=== PATIENT | male | born 1940 | race Caucasian/White ===

== ENCOUNTER 2018-05-15 12:23 | Inpatient (IN) | payer OTHER ==
--- OUTSIDE RECORDS SUMMARY | 2018-05-15 12:50 | XMS REPORT | Clinical Summary ---
:1940 Author Organization [facility] Address [address] [place] [address] Phone Care Team Providers Name Role Phone Unavailable Primary Care Provider Unavailable Allergies No Known Allergies Current Medications Prescription Sig. Disp. Refills Start Date End Date Status levothyroxine (SYNTHROID, Take 75 mcg by Active LEVOTHROID) 75 MCG mouth Every morning tabletIndications: on an empty hypothyroidism stomach. lisinopril Take 10 mg by mouth Active (PRINIVIL,ZESTRIL) 10 MG daily. tablet carvedilol (COREG) 6.25 Take 6.25 mg by Active MG tablet mouth 2 (two) times daily with breakfast and dinner. furosemide (LASIX) 40 MG Take 40 mg by mouth Active tablet 2 (two) times daily. lovastatin (MEVACOR) 40 Take 40 mg by mouth Active MG tablet nightly. rivaroxaban (XARELTO) 15 Take by mouth. Active mg Tab tablet docusate sodium (COLACE) Take 100 mg by Active 100 MG capsule mouth daily. Active Problems Problem Noted Date Renal mass 08/20/2016 COPD (chronic obstructive pulmonary disease) (HCC) 08/20/2016 Pleural effusion 08/13/2016 Ex-smoker Social History Tobacco Use Types Packs/Day Years Used Date Never Assessed Sex Assigned at Date Recorded Not on file Last Filed Vital Signs Not on file Plan of Treatment Not on file Results Not on fileafter 05/14/2017
--- OUTSIDE RECORDS SUMMARY | 2018-05-15 12:50 | XMS REPORT ---
:1940 Author [facility] Address [address] [place] [address] Dr. Anaya [address] [place] [address] Care Team Providers Name Role Phone ZEHRA TIMMONS Unavailable Unavailable Problems This patient has no known problems. Allergies, Adverse Reactions, Alerts This patient has no known allergies or adverse reactions. Medications This patient has no known medications. Results Test Description Test Time Test Comments Text Results Atomic Results Result Comments PT/APTT 2017-02-24 10:16:00 Test Item Value Reference Range Comments PROTIME (BEAKER) (test atth=416) 14.1 seconds 11.7-14.7 INR (BEAKER) (test nnfu=063) 1.1 <=5.9 PARTIAL THROMBOPLASTIN TIME (BEAKER) (test fbec=171) 30.0 seconds 22.5-36.0 RECOMMENDED COUMADIN/WARFARIN INR THERAPY RANGESSTANDARD DOSE: 2.0 - 3.0 Includes: PROPHYLAXIS forvenous thrombosis, systemic embolization; TREATMENT for venous thrombosis and/or pulmonary embolus.HIGH RISK: Target INR is 2.5-3.5 for patients with mechanical heart valves.PLATELET [id number] 10:14:00 Test Item Value Reference Range Comments PLATELET COUNT (BEAKER) (test jvlg=089) 314 K/CU MM 150-430
[2018-05-15 13:45] VITALS: BMI 23.3
[2018-05-15] MEDS ORDERED: ALBUTEROL 2.5 MG/3 ML NEB SOL IH PRN (14:02)
[2018-05-15 14:24] LABS: Absolute Lymphocytes (CBC) 1.8 K/uL (0.7-4.9); Absolute Neutrophil 10.3 K/uL (1.8-8.0); Hematocrit 44.7 % (39.6-49.0); Lymphocytes % 13.3 % (15.3-44.8); MCV 82.1 fL (80-100); MPV 8.5 fL (7.6-11.3); Monocytes % 7.4 % (3.3-12.3); RBC Red Blood Cell Count 5.44 M/uL (4.33-5.43)
[2018-05-15 14:39] LABS: Potassium 4.7 mmol/L (3.5-5.1)
[2018-05-15] MEDS: ALBUTEROL 2.5 MG/3 ML NEB SOL IH SCH ×2 (16:45→19:21)
[2018-05-15] MEDS: IPRATROPIUM BROM 0.5MG/2.5ML IH SCH ×2 (16:45→19:22)
[2018-05-15] MEDS: Meropenem 1,000 MG in NA CHLORIDE 0.9% 100 ML IV SCH (17:11)
--- NOTE | 2018-05-15 18:17 | RAD REPORT ---
EXAM DESCRIPTION: VAS - Extremity Venous Uni Ltd - 05/15/2018 6:04 pm CLINICAL HISTORY: CELLULITIS Leg swelling and edema. COMPARISON: No comparisons FINDINGS: Right lower extremity venous system was interrogated with Doppler technique. Normal flow, compressibility and augmentation was noted. There is no DVT present. IMPRESSION: No evidence of right lower extremity deep venous thrombosis.
[2018-05-15 18:30] LABS: Urine Appearance CLEAR; Urine Blood NEGATIVE (NEG); Urine Color DK YELLOW; Urine Glucose NEGATIVE (NEG); Urine Protein NEGATIVE (NEG); Urine Specific Gravity 1.025 (1.005-1.030); Urine pH 5.5 (5.0-7.0)
[2018-05-15 18:47] LABS: Urine Microscopic Reflex NO UMIC
[2018-05-15 18:57] LABS: Urine Bilirubin 1+ (NEG)
[2018-05-15] MEDS ORDERED: LOVASTATIN 40 MG PO SCH (21:00)
[2018-05-15] MEDS: CARVEDILOL 6.25 MG TAB PO SCH (21:57)
[2018-05-15] MEDS: ATORVASTATIN 20 MG TAB PO SCH (21:57)
[2018-05-15] MEDS: HYDROCODONE/APAP 5/325 MG TAB PO PRN (22:00)
[2018-05-16] MEDS: Meropenem 1,000 MG in NA CHLORIDE 0.9% 100 ML IV SCH ×3 (00:08→16:37)
[2018-05-16 06:02] LABS: Albumin 2.1 g/dL (3.4-5.0); Bilirubin Direct 0.2 mg/dL (0-0.2); Bilirubin Total 0.5 mg/dL (0.2-1.0); Potassium 3.5 mmol/L (3.5-5.1); Protein, Total 5.3 g/dL (6.4-8.2)
[2018-05-16] MEDS: LEVOTHYROXINE SOD 0.075 MG TAB PO SCH (06:12)
[2018-05-16] MEDS: IPRATROPIUM BROM 0.5MG/2.5ML IH SCH ×4 (07:51→20:00)
[2018-05-16] MEDS: ALBUTEROL 2.5 MG/3 ML NEB SOL IH SCH ×4 (07:51→20:00)
[2018-05-16] MEDS ORDERED: FUROSEMIDE 20 MG TABLET PO SCH (09:00)
[2018-05-16] MEDS: CARVEDILOL 6.25 MG TAB PO SCH ×2 (09:06→20:51)
[2018-05-16] MEDS: MUPIROCIN 2% OINT 22GM TUBE TOP SCH (09:06)
[2018-05-16] MEDS: DOCUSATE NA 100 MG CAP PO SCH (09:06)
[2018-05-16] MEDS: RIVAROXABAN 15 MG TABLET PO SCH (09:06)
[2018-05-16] MEDS: FUROSEMIDE 20 MG/ 2ML VIAL IV SCH ×2 (09:07→16:37)
[2018-05-16] MEDS: ATORVASTATIN 20 MG TAB PO SCH (20:51)
[2018-05-17] MEDS: Meropenem 1,000 MG in NA CHLORIDE 0.9% 100 ML IV SCH ×3 (00:45→17:39)
[2018-05-17] MEDS: LEVOTHYROXINE SOD 0.075 MG TAB PO SCH (06:39)
[2018-05-17] MEDS: IPRATROPIUM BROM 0.5MG/2.5ML IH SCH ×4 (08:25→20:49)
[2018-05-17] MEDS: ALBUTEROL 2.5 MG/3 ML NEB SOL IH SCH ×4 (08:25→20:49)
[2018-05-17] MEDS: CARVEDILOL 6.25 MG TAB PO SCH ×2 (09:40→21:55)
[2018-05-17] MEDS: MUPIROCIN 2% OINT 22GM TUBE TOP SCH (09:41)
[2018-05-17] MEDS: DOCUSATE NA 100 MG CAP PO SCH (09:41)
[2018-05-17] MEDS: FUROSEMIDE 20 MG/ 2ML VIAL IV SCH ×2 (09:42→17:38)
[2018-05-17] MEDS: RIVAROXABAN 15 MG TABLET PO SCH (09:48)
[2018-05-17 13:09] LABS: Absolute Lymphocytes (CBC) 1.1 K/uL (0.7-4.9); Absolute Monocytes 0.8 K/uL (0.1-1.3); Absolute Neutrophil 6.3 K/uL (1.8-8.0); Basophils % 0.8 % (0-1.3); Hematocrit 43.4 % (39.6-49.0); Lymphocytes % 13.3 % (15.3-44.8); MCH 26.1 pg (27.0-35.0); MCV 83.1 fL (80-100); MPV 8.1 fL (7.6-11.3); Monocytes % 9.2 % (3.3-12.3); RBC Red Blood Cell Count 5.22 M/uL (4.33-5.43)
[2018-05-17 13:21] LABS: Potassium 4.6 mmol/L (3.5-5.1)
--- NOTE | 2018-05-17 17:45 | PN ---
Date of Progress Note: 05/17/2018 The patient's cellulitis has decreased considerably. The erythema has improved. Still has marked in duration in the area; however, is not near as tender and now he can walk on. The wound itself still showed some cellulitic areas circumferentially on the lower outer aspect of the ankle. His creatinin e and potassium remained stable on the 40 mg of IV Lasix; however, he has had decrease in the periphe ral fluid. Decision should be made tomorrow as to whether continue the Merrem IV or change to p.o. m edication. There was no evidence of any clot on Doppler. HR/MODL Voice ID: [id number] Report ID: [id number]
--- NOTE | 2018-05-17 18:42 | HP ---
Date of Admission: 05/15/2018 Entrance Complaint: Painful right leg. History Of Present Illness: The patient states he scratched his right lower leg a couple weeks ago. He did not think much of it, put some topical antibiotic on it and then a few days prior to being se en in the office, he noticed some soreness in the right upper thigh, inner aspect, it then became fir m, red, and he presented to the office, a diagnosis of cellulitis, lymphangitis was made and he was a dmitted for antibiotic IV therapy. Past Medical History: The patient has had significant past history over the past few years, has been admitted in numerous including here and in [place] for episodes of CHF, acute exacerbatio ns of COPD, renal cancer, which necessitated removal of his kidney, various chemotherapies, which res ulted in some decreased immunity and as of late fluid retention. Family History: Noncontributory. Social History: The patient currently is nonsmoker, although he has in the past a number of years. Nonalcoholic. Physical Examination: General: The patient is a rather thin elderly male, utilizing oxygen, nasal cannula, with stable vit al signs. Head and Neck: Normocephalic. Pupils equal and react to light and accommodation. Fundi negative. Trachea midline. Thyroid not palpable. ENT: Negative. Chest: Occasional rales at both bases. Cardiovascular: PMI midclavicular line. Heart: Sounds normal. Peripheral pulses present and equal bilaterally. Abdomen: No organomegaly. Bowel sounds present. Extremities: +2 pitting edema on the right, quarter-size abrasion, slightly purulent-appearing on th e right ankle, tenderness from the knee to the groin, erythema on the inner aspect, indura colt in this area as well and appears to be palpable nodes in the right groin. Rectal: Deferred. Impression: Abrasion on the ankle with secondary lymphangitis and cellulitis of the right upper leg; congestive heart failure, controlled; chronic obstructive pulmonary disease, controlled; post nephre ctomy, kidney cancer. Plan: The patient will be admitted and placed on IV antibiotics. IV diuretics in the form of Lasix will also be utilized in attempt to remove some of the fluid from the lower extremities secondary to combination of CHF and/or borderline protein levels. HR/MODL Voice ID: [id number]
[2018-05-17] MEDS: ATORVASTATIN 20 MG TAB PO SCH (21:55)
[2018-05-18] MEDS: Meropenem 1,000 MG in NA CHLORIDE 0.9% 100 ML IV SCH ×2 (00:42→09:14)
[2018-05-18] MEDS: LEVOTHYROXINE SOD 0.075 MG TAB PO SCH (05:16)
[2018-05-18] MEDS: HYDROCODONE/APAP 5/325 MG TAB PO PRN (05:27)
[2018-05-18] MEDS: ALBUTEROL 2.5 MG/3 ML NEB SOL IH SCH (08:18)
[2018-05-18] MEDS: IPRATROPIUM BROM 0.5MG/2.5ML IH SCH (08:18)
[2018-05-18 08:28] VITALS: BP 110/56; TEMP 97.1
[2018-05-18] MEDS: DOCUSATE NA 100 MG CAP PO SCH (09:12)
[2018-05-18] MEDS: FUROSEMIDE 20 MG/ 2ML VIAL IV SCH (09:13)
[2018-05-18] MEDS: CARVEDILOL 6.25 MG TAB PO SCH (09:13)
[2018-05-18] MEDS: MUPIROCIN 2% OINT 22GM TUBE TOP SCH (09:13)
[2018-05-18] MEDS: RIVAROXABAN 15 MG TABLET PO SCH (09:13)
[2018-05-18 09:50] VITALS: O2SAT 87
== END 2018-05-18 12:08 | disposition home or self-care (01) | DRG 603 ==
LOC: 2ND 12:49
PROVIDERS: ADMIT Family Medicine; ATTEND Family Medicine
DX: L03.115 Cellulitis of right lower limb (principal); S90.511A Abrasion, right ankle, initial encounter; X58.XXXA Exposure to other specified factors, initial encounter; J44.9 Chronic obstructive pulmonary disease, unspecified; Z99.81 Dependence on supplemental oxygen; I50.9 Heart failure, unspecified; Z85.528 Personal history of other malignant neoplasm of kidney; Z90.5 Acquired absence of kidney; Z92.21 Personal history of antineoplastic chemotherapy; Z87.891 Personal history of nicotine dependence
CPT/HCPCS: 36415; 80048; 80076; 81003; 85025; 87070; 87205; 93971; 94640; J1940

== ENCOUNTER 2018-05-31 13:58 | Inpatient (IN) | payer OTHER ==
--- OUTSIDE RECORDS SUMMARY | 2018-05-31 14:11 | XMS REPORT | Clinical Summary ---
:1940 Author Organization [facility] Address [address] [place] [address] Phone Care Team Providers Name Role Phone [...] Not on file Results Not on fileafter 05/30/2017
--- OUTSIDE RECORDS SUMMARY | 2018-05-31 14:11 | XMS REPORT ---
:1940 Author Organization [facility] Address [address] [place] [address] Dr. Anaya [address] [place] [address] Care Team Providers Name Role Phone ZEHRA TIMMONS Unavailable Unavailable Problems This patient has no known problems. Allergies, Adverse Reactions, Alerts This patient has no known allergies or adverse reactions. Medications This patient has no known medications. Results Test Description Test Time Test Comments Text Results Atomic Results Result Comments PT/APTT 2017-02-24 10:16:00 Test Item Value Reference Range Comments PROTIME (BEAKER) (test lfvo=429) 14.1 seconds 11.7-14.7 INR (BEAKER) (test slwc=580) 1.1 <=5.9 PARTIAL THROMBOPLASTIN TIME (BEAKER) (test hxha=503) 30.0 seconds 22.5-36.0 RECOMMENDED COUMADIN/WARFARIN INR THERAPY RANGESSTANDARD DOSE: 2.0 - 3.0 Includes: PROPHYLAXIS forvenous thrombosis, systemic embolization; TREATMENT for venous thrombosis and/or pulmonary embolus.HIGH RISK: Target INR is 2.5-3.5 for patients with mechanical heart valves.PLATELET [id number] 10:14:00 Test Item Value Reference Range Comments PLATELET COUNT (BEAKER) (test tyuk=783) 314 K/CU MM 150-430
[2018-05-31] MEDS ORDERED: IPRATROPIUM BROM 0.5MG/2.5ML IH PRN (14:42)
[2018-05-31] MEDS ORDERED: ALBUTEROL 2.5 MG/3 ML NEB SOL IH PRN (14:42)
[2018-05-31 15:42] VITALS: BMI 23.6
[2018-05-31 16:02] LABS: Urine Appearance CLEAR; Urine Bilirubin NEGATIVE (NEG); Urine Blood NEGATIVE (NEG); Urine Color YELLOW; Urine Glucose NEGATIVE (NEG); Urine Protein NEGATIVE (NEG); Urine Specific Gravity <=1.005 (1.005-1.030)
[2018-05-31 16:03] LABS: Urine Microscopic Reflex NO UMIC
[2018-05-31] MEDS: ALBUTEROL 2.5 MG/3 ML NEB SOL IH SCH ×2 (16:19→20:10)
[2018-05-31] MEDS: IPRATROPIUM BROM 0.5MG/2.5ML IH SCH ×2 (16:19→20:00)
[2018-05-31] MEDS: RIVAROXABAN 15 MG TABLET PO SCH (16:51)
[2018-05-31] MEDS ORDERED: FUROSEMIDE 40 MG/4 ML VIAL IV ONE (17:38)
[2018-05-31 18:23] LABS: Albumin 2.5 g/dL (3.4-5.0); Bilirubin Total 0.3 mg/dL (0.2-1.0); Magnesium 2.5 mg/dL (1.8-2.4); Phosphorus 3.2 mg/dL (2.5-4.9); Potassium 4.4 mmol/L (3.5-5.1); Protein, Total 5.8 g/dL (6.4-8.2)
[2018-05-31] MEDS: ALBUMIN HUMAN 25% 12.5 GM, FUROSEMIDE 100 MG in NA CHLORIDE 0.9% 40 ML IV SCH ×2 (18:35→22:28)
[2018-05-31 21:52] LABS: UR PROTEIN 5 mg/dL (<11.9); Urine Protein/Creatinine Ratio 0.28 ratio (<0.15)
[2018-05-31 22:10] LABS: UR MICROALBUMIN < 0.5 mg/dL (< 1.9)
--- NOTE | 2018-05-31 22:13 | RAD REPORT ---
EXAM DESCRIPTION: RAD - Chest Single View - 05/31/2018 9:10 pm CLINICAL HISTORY: Chronic kidney disease, fluid overload COMPARISON: CT chest November 2017, two view chest November 2017 TECHNIQUE: AP portable chest image was obtained 2057 hours . FINDINGS: Right-sided Port-A-Cath is in place. Interstitial and alveolar opacities are present in adriano th lower lung finley along with chronic bilateral pleural effusions. Trachea is midline. Upper lobe v asculature within normal limits. Cardiac silhouette is enlarged but stable. No pneumothorax. No gross bony abnormality seen. No acute aortic findings suspected. IMPRESSION: Chronic lung base pleural effusions. Left pleural effusion is slightly smaller than seen on November imaging. Chronic interstitial and patchy alveolar opacities in each lower lobe. These could potentially mask a component of edema or infiltrate.
--- NOTE | 2018-05-31 22:13 | RAD REPORT ---
EXAM DESCRIPTION: US - Renal Ultrasound-Complete - 05/31/2018 9:07 pm CLINICAL HISTORY: Chronic kidney disease, right nephrectomy COMPARISON: CT study July 2016 FINDINGS: The right kidney is absent. The left kidney measures 11.6 x 5.8 x 5.7 cm. Renal cortical t hickness and echogenicity are normal. No hydronephrosis or suspicious renal mass. No bladder wall thickening or mass. No intraluminal stone or mass. IMPRESSION: No hydronephrosis or suspicious left renal mass. Right nephrectomy.
[2018-05-31] MEDS: CARVEDILOL 6.25 MG TAB PO SCH (22:28)
--- NOTE | 2018-06-01 03:16 | HP ---
Date of Admission: 05/31/2018 Entrance Complaint: Increasing dyspnea, peripheral edema. History Of Present Illness: The patient has had the above-outlined problems for a number of months n ow. He has been treated with various modalities on an outpatient basis with minimal improvement. He has had approximately 5-pound weight loss. During this time, his albumin and protein have come down somewhat, although they had been borderline in the past. He was also seen by his oncologist a few d ays ago and a CT scan was done of the chest, however, it is not available at this time due to the pro gression of the exertional dyspnea and a poor response of peripheral edema to various outpatient diur etic treatments and was felt that he could be admitted, possibly placed on protein with diuresis to i mprove his general condition. Past History: The patient has a long medical history necessitating hospitalization for numerous prob lems including lung CA, CHF, COPD, and was admitted a couple weeks ago for cellulitis and lymphangiti s of the upper extremity on the right. This has improved considerably. Social History: Nonsmoker at present. Family History: Noncontributory. Physical Examination: General: The patient is a thin elderly male using oxygen nasally. vital Signs: Stable. Head and Neck: Normocephalic. Pupils equal and reactive to light and accommodation. Fundi negative. Trachea midline. Thyroid not palpable. ENT: Negative. Chest: Bilateral rhonchi and few rales at both bases. Adequate air entry and movement. Cardiovascular: PMI midclavicular line. Heart: Sounds normal. Peripheral pulses are present and equal bilaterally. Abdomen: No organomegaly. Bowel sounds are present. Extremities: +2 pitting edema bilaterally below the knees. Upper extremities normal. Good tone and movement bilaterally. Reflexes physiologic. Rectal: Deferred. Impression: Congestive heart failure with peripheral edema, right-sided failure, hypoalbuminemia, ca ncer of lung by history, renal cancer by history. Plan: The patient will be admitted and placed on IV albumin and diuresis in an intend to remove sign ificant amount of fluid. He will be seen by Nephrology. HR/MODL Voice ID: [id number]
[2018-06-01] MEDS: ALBUMIN HUMAN 25% 12.5 GM, FUROSEMIDE 100 MG in NA CHLORIDE 0.9% 40 ML IV SCH ×5 (04:05→23:19)
[2018-06-01] MEDS ORDERED: LEVOTHYROXINE SOD 0.075 MG TAB PO SCH (06:30)
[2018-06-01 06:31] LABS: Magnesium 2.2 mg/dL (1.8-2.4); Phosphorus 3.5 mg/dL (2.5-4.9); Potassium 4.3 mmol/L (3.5-5.1)
[2018-06-01 06:33] LABS: Thyroid Stimulating Hormone 4.81 uIU/mL (0.36-3.74)
[2018-06-01] MEDS: IPRATROPIUM BROM 0.5MG/2.5ML IH SCH ×4 (08:07→20:05)
[2018-06-01] MEDS: ALBUTEROL 2.5 MG/3 ML NEB SOL IH SCH ×4 (08:07→20:04)
[2018-06-01] MEDS: CARVEDILOL 6.25 MG TAB PO SCH ×2 (08:45→21:43)
--- NOTE | 2018-06-01 12:28 | CON ---
Date of Consultation: 05/29/2018 Chief Complaint: Anasarca, legs edema, chronic kidney disease stage 3. History Of Present Illness: The patient has history of chronic kidney disease stage 3, baseline renal function is fluctuating , GFR ranging from 34 to 56. He developed previously prerenal azotemia. He did not require dialysis. The patient was referred by primary physician for worsening of the legs edema. Renal function was evaluated today in the hospital and it showed BUN of 17, creatinine 1.3, estimated GFR of 53. Electrolytes as follows; sodium 141, potassium 4.4, chloride 100, CO2 of 36, phosphorus 3.2, calcium 8.2. The patient developed progressively worse legs edema, and despite diuretics' dose adjustment, legs edema has not improved. The patient is admitted to the hospital for IV diuretics. He has underlying history of hypertensive heart and kidney disease, hypothyroidism. Review of Systems: General: He denies fever or chills. Eyes: Denies vision changes. Ears, Nose, Mouth, and Throat: Denies sore throat or earache. Respiratory: Denies PND or orthopnea. He has chronic history of dyspnea on exertion. GI: Denies nausea or vomiting. : Denies dysuria, hematuria, or incomplete voiding. All other system reviewed and all are negative. Past Medical History: Hypertensive heart and kidney disease; congestive heart failure; COPD exacerbation; renal cancer, status post nephrectomy, status post chemotherapy. Social History: Previously he quit smoking. Denies tobacco or alcohol. Family History: No kidney disease. Physical Examination: Eyes: Anicteric sclerae. EOMI. Ears, Nose, Mouth and Throat: Oral mucosa moist. No pallor. Neck: Supple. No JVD. No bruits. Lungs: Clear to auscultation bilaterally. Heart: S1, S2. No pericardial friction rub Abdomen: Soft, benign. Extremities: Edema present in both legs. No tenderness, no cyanosis. Neurological: Moving extremities. Cranial nerves intact. Psychiatric: Alert and oriented x3. Normal affect. Laboratory Data: Sodium 141, potassium 4.4, chloride 100, CO2 of 36, BUN 17, creatinine 1.30, calcium 8.9, phosphorus 3.2, total bilirubin is 2.5. Hemoglobin is 13.6, WBC 8.3, platelet count is 291,000. Renal ultrasound showed no hydronephrosis, right nephrectomy, no suspicious left renal mass, no bladder thickening, no intraluminal stone or mass. Left kidney size 11.6 x 5.8. Impression And Plan: 1. Fluid overload, legs edema. Continue Lasix with albumin drip. Monitor electrolytes. Plan to advance diuretic according to fluid balance. 2. Hypertension. Blood pressure in acceptable control. Continue beta- aura. The patient has history of congestive heart failure. Currently, he denies PND or orthopnea. Chest x-ray did not demonstrate infiltrate. Monitor fluid balance. Continue low-sodium diet. The patient may need to have lower extremity venous Doppler to rule out deep venous thrombosis. 3. The patient has chronic lung disease, chronic obstructive pulmonary disease. Chest x-ray showed some chronic interstitial and patchy alveolar opacities. Further recommendation from Pulmonary team and Primary team. Continue to reevaluate oxygenation and advance oxygen level accordingly. The patient may need to have CT scan for further workup. Contrast at this point is not recommended in view of elevated BUN and creatinine. 4. Hypertension. Continue blood pressure medications. Monitor blood pressure closely when the patient is on Lasix drip. JOLENE/DERRICK Voice ID: [id number] Report ID: [id number] LAZARA
[2018-06-01] MEDS: RIVAROXABAN 15 MG TABLET PO SCH (17:09)
--- NOTE | 2018-06-02 00:53 | PN ---
Date of Progress Note: 06/01/2018 Subjective: The patient is admitted with over volume anasarca. We started the patient on Lasix drip . The patient is responding very well. Physical Examination: Vital Signs: Blood pressure of 109/57, pulse of 75. The patient had good urine output of 4300. The patient lost 9 pounds from yesterday. Chest: Crackles in the base. Heart: S1, S2. Regular. Abdomen: Soft, nontender. Extremities: +2 edema. Laboratory Data: Sodium 143, potassium 4.3, bicarb 39, BUN 17, creatinine 1.4, calcium 8.8, phosphor us 3.5, magnesium 2.2. TSH 4.8. Protein creatinine 0.2. Medications: Current medications the patient on include; 1.Lasix drip. 2.Albumin. 3.Carvedilol 6.25 b.i.d. 4.Levothyroxine. 5.Lasix 40 daily. Assessment And Plan: 1.Hypertension. We will utilize the blood pressure for more diuresis. I am going to go ahead and d ecrease carvedilol. Continue Lasix drip. 2.Hypothyroidism. Increase supplement. 3.Chronic kidney disease, stable on baseline over volume as above. We will continue diuresing. 4.Anasarca, multifactorial. 5.Renal failure. 6.Hypothyroidism. As above. BRANDO Voice ID: [id number] Report ID: [id number]
[2018-06-02] MEDS: ALBUMIN HUMAN 25% 12.5 GM, FUROSEMIDE 100 MG in NA CHLORIDE 0.9% 40 ML IV SCH ×2 (05:16→10:50)
[2018-06-02] MEDS: LEVOTHYROXINE SOD 0.1 MG TAB PO SCH (05:17)
[2018-06-02 05:54] LABS: Albumin 4.1 g/dL (3.4-5.0); Magnesium 2.5 mg/dL (1.8-2.4); Phosphorus 4.5 mg/dL (2.5-4.9); Potassium 4.2 mmol/L (3.5-5.1)
[2018-06-02] MEDS: IPRATROPIUM BROM 0.5MG/2.5ML IH SCH ×4 (07:39→20:55)
[2018-06-02] MEDS: ALBUTEROL 2.5 MG/3 ML NEB SOL IH SCH ×4 (07:39→20:55)
[2018-06-02] MEDS: CARVEDILOL 6.25 MG TAB PO SCH ×2 (08:48→17:21)
[2018-06-02] MEDS: RIVAROXABAN 15 MG TABLET PO SCH (17:22)
[2018-06-02] MEDS: BUMETANIDE 1 MG TABLET PO SCH (21:22)
--- NOTE | 2018-06-03 02:46 | PN ---
Date of Progress Note: 06/02/2018 Subjective: The patient doing better. The patient lost 18 pounds from admission. Physical Examination: Vital Signs: Blood pressure 98/53, pulse of 89, afebrile. Chest: Clear to auscultation. Heart: S1, S2. Regular. Abdomen: Soft, nontender. Extremities: No edema. Laboratory Data: Sodium 144, potassium 4.2, bicarb 40, BUN 21, creatinine 1.6, calcium 9.7, phosphor us 4.2, protein creatinine 0.2. Current Medications: Include: 1.Lasix drip. 2.Breathing treatment. 3.Carvedilol 3.25. 4.Xarelto. 5.Levothyroxine. Assessment And Plan: 1.Acute kidney injury on chronic kidney disease, plateaued. 2.Anasarca, secondary to renal failure. Poor compliant with the salt diet, currently normal volume. I am going to switch the patient to oral Bumex and will follow up. 3.Hypertension, controlled, currently blood pressure on the lower side. Discontinue Lasix drip, sta rt on Bumex oral and will follow up. BRANDO Voice ID: [id number] Report ID: [id number]
[2018-06-03] MEDS: LEVOTHYROXINE SOD 0.1 MG TAB PO SCH (05:18)
[2018-06-03 05:48] LABS: Albumin 3.5 g/dL (3.4-5.0); Magnesium 2.2 mg/dL (1.8-2.4); Potassium 3.3 mmol/L (3.5-5.1)
[2018-06-03] MEDS: IPRATROPIUM BROM 0.5MG/2.5ML IH SCH ×3 (08:00→15:18)
[2018-06-03] MEDS: ALBUTEROL 2.5 MG/3 ML NEB SOL IH SCH ×3 (08:00→15:18)
[2018-06-03] MEDS: CARVEDILOL 6.25 MG TAB PO SCH (08:41)
[2018-06-03] MEDS: BUMETANIDE 1 MG TABLET PO SCH (08:41)
[2018-06-03] MEDS ORDERED: POTASSIUM CL SA 10 MEQ TAB PO ONE (10:44)
[2018-06-03 10:47] VITALS: O2SAT 91
[2018-06-03 12:04] VITALS: BP 115/69; TEMP 97.6
--- NOTE | 2018-06-03 16:26 | PN ---
Date of Progress Note: 06/03/2018 Subjective: The patient doing much better. The patient was admitted with anasarca, acute kidney inj ury. The patient diuresed on Lasix drip, switched yesterday on Bumex oral. Responds very well. Objective: Vital Signs: Blood pressure 105/60, pulse of 56 afebrile. The patient had urine output of 5900. The patient down to 135 pounds, lost 20 pounds since admission. Chest: Clear to auscultation. Heart: S1, S2. Regular. Abdomen: Soft. Nontender. Extremities: No edema. Laboratory Data: Sodium 140, potassium 3.3, bicarb 40, BUN 23, creatinine 1.3, calcium 8.8, phos 4, and magnesium of 2. Current Medications: The patient is on includes; 1.Bumex 2 mg b.i.d. 2.Albuterol. 3.Coreg 3.125 b.i.d. 4.Xarelto 15 daily. 5.Breathing treatment. 6.Levothyroxine 100 mcg daily. Assessment And Plan: 1.Acute kidney injury secondary to cardiorenal, recovered, resolved, back to base line. 2.Anasarca, multifactorial, cardio renal. Nephrotic has been ruled out. 3.Mild, subtreated hypothyroidism, tolerated Bumex. Continue to lose weight. I am going to continu e Bumex 2 mg b.i.d. 4.Hypokalemia. Continue. We will supplement. The patient cleared from the renal standpoint for discharge planning to follow up in the office in 2- 3 weeks. BRANDO Voice ID: [id number] Report ID: [id number]
--- NOTE | 2018-06-03 17:09 | PN ---
Date of Progress Note: 06/02/2018 Subjective: The patient feels much better. He said he can breathe without significant problems. Th e peripheral edema is markedly improved. He has lost around 18 pounds. He is being converted to p.o . medication and he he tolerates this without significant weight gain, he could be discharged. The a lbumin level is also back up to 4.1. He is being followed by nephrology. HR/MODL Voice ID: [id number] Report ID: [id number]
--- NOTE | 2018-06-03 19:39 | PN ---
Date of Progress Note: 06/03/2018 Subjective: The patient has lost another 2 pounds. He has been on the Bumex. He feels much better, states the best he has felt in over a year. He has no peripheral edema. He will be discharged on B umex 2 mg and follow up with myself and the nephrology. HR/MODL Voice ID: [id number] Report ID: [id number]
--- NOTE | 2018-06-04 10:56 | PN ---
The patient feels much better. He has had a marked amount of diuresis. Peripheral edema is down to +1 to half and possibly should be ready for discharge within 24 hours. The question will be him much diuresis he will require. Response to the diuresis with a protein has been excellent. HR/MODL Voice ID: [id number] Report ID: [id number]
== END 2018-06-03 15:40 | disposition home or self-care (01) | DRG 683 ==
LOC: 4TH 14:08 → OBSVTOIN 06-02 14:00
PROVIDERS: ADMIT Family Medicine; ATTEND Family Medicine
DX: N17.9 Acute kidney failure, unspecified (principal); I13.0 Hypertensive heart and chronic kidney disease with heart failure and stage 1 through stage 4 chronic kidney disease, or unspecified chronic kidney disease; N18.3 Chronic kidney disease, stage 3 (moderate); E87.6 Hypokalemia; J44.9 Chronic obstructive pulmonary disease, unspecified; I50.814 Right heart failure due to left heart failure; E88.09 Other disorders of plasma-protein metabolism, not elsewhere classified; E03.9 Hypothyroidism, unspecified; Z91.11 Patient's noncompliance with dietary regimen; Z90.5 Acquired absence of kidney; Z85.528 Personal history of other malignant neoplasm of kidney; Z85.118 Personal history of other malignant neoplasm of bronchus and lung; Z99.81 Dependence on supplemental oxygen
CPT/HCPCS: 36415; 71045; 76770; 80053; 80069; 81003; 82043; 82570; 83735; 84100; 84156; 84439; 84443; 87070; 87205; 94640; G0378; G0379; P9047

== ENCOUNTER 2018-10-28 16:02 | Inpatient (IN) | payer OTHER ==
--- OUTSIDE RECORDS SUMMARY | 2018-10-28 16:05 | XMS REPORT ---
:1940 [facility] Address [address] [place] [address] Dr. Anaya [address] [place] [address] Care Team Providers Name Role Phone ZEHRA TIMMONS Unavailable Unavailable Problems This patient has no known problems. Allergies, Adverse Reactions, Alerts This patient has no known allergies or adverse reactions. Medications This patient has no known medications. Results Test Description Test Time Test Comments Text Results Atomic Results Result Comments PT/APTT 2017-02-24 10:16:00 Test Item Value Reference Range Comments PROTIME (BEAKER) (test cvui=515) 14.1 seconds 11.7-14.7 INR (BEAKER) (test airq=794) 1.1 <=5.9 PARTIAL THROMBOPLASTIN TIME (BEAKER) (test nqzg=784) 30.0 seconds 22.5-36.0 RECOMMENDED COUMADIN/WARFARIN INR THERAPY RANGESSTANDARD DOSE: 2.0 - 3.0 Includes: PROPHYLAXIS forvenous thrombosis, systemic embolization; TREATMENT for venous thrombosis and/or pulmonary embolus.HIGH RISK: Target INR is 2.5-3.5 for patients with mechanical heart valves.PLATELET [id number] 10:14:00 Test Item Value Reference Range Comments PLATELET COUNT (BEAKER) (test jwzr=504) 314 K/CU MM 150-430
--- OUTSIDE RECORDS SUMMARY | 2018-10-28 16:05 | XMS REPORT | Clinical Summary ---
:1940 Author Organization [facility] Address [address] [place] [address] Care Team Providers Name Role Phone Nikolay Arnold Primary Care Provider Unavailable Allergies No Known Allergies Medications Medication Sig Dispensed Refills Start Date End Date Status levothyroxine Take 75 mcg by 0 Active (SYNTHROID, LEVOTHROID) mouth Every 75 MCG morning on an tabletIndications: empty stomach. hypothyroidism lisinopril Take 10 mg by 0 Active (PRINIVIL,ZESTRIL) 10 mouth daily. MG tablet carvedilol (COREG) 6.25 Take 6.25 mg by 0 Active MG tablet mouth 2 (two) times daily with breakfast and dinner. furosemide (LASIX) 40 Take 40 mg by 0 Active MG tablet mouth 2 (two) times daily. lovastatin (MEVACOR) 40 Take 40 mg by 0 Active MG tablet mouth nightly. rivaroxaban (XARELTO) Take by mouth. 0 Active 15 mg Tab tablet docusate sodium Take 100 mg by 0 Active (COLACE) 100 MG capsule mouth daily. Active Problems Problem Noted Date Renal mass 08/20/2016 COPD (chronic obstructive pulmonary disease) 08/20/2016 Pleural effusion 08/13/2016 Ex-smoker Social History Tobacco Use Types Packs/Day Years Used Date Never Assessed Sex Assigned at Date Recorded Not on file Job Start Date Occupation Industry Not on file Not on file Not on file Travel History Travel Start Travel End No recent travel history available. Last Filed Vital Signs Not on file Plan of Treatment Not on file Results Not on fileafter 10/27/2017 Insurance Payer Benefit Plan / Subscriber ID Type Phone Address Group [employer] - [employer] MEDICARE xxxxxxxx [facility] Contracted [phone] MEDICARE [employer] HMO POS [id number] [place] [address] Advance Directives For more information, please contact:[address] [phone] Code Status Date Activated Date Inactivated Comments Full Code 08/23/2016 11:09 AM 08/25/2016 6:09 PM This code status was determined by: Patient DNR 08/13/2016 1:33 AM 08/23/2016 11:09 AM
[2018-10-28] MEDS ORDERED: IPRATROPIUM BROM 0.5MG/2.5ML ONE (16:17)
[2018-10-28] MEDS ORDERED: ALBUTEROL 2.5 MG/3 ML NEB SOL ONE (16:17)
[2018-10-28] MEDS ORDERED: METHYLPREDNISOLONE 125 MG INJ ONE (16:17)
[2018-10-28 16:21] LABS: Arterial Blood Carboxyhemoglob 1.3 % (0-1.5); Blood Gas Oxyhemoglobin 89.1 % (94-97); Blood O2 Saturation 90.9 % (92-98.5)
[2018-10-28 16:49] LABS: Protime INR 1.15
[2018-10-28 17:00] LABS: Absolute Lymphocytes (CBC) 1.2 K/uL (0.7-4.9); Basophils % 0.8 % (0-1.3); Hematocrit 41.4 % (39.6-49.0); Lymphocytes % 14.7 % (15.3-44.8); MPV 8.6 fL (7.6-11.3); Monocytes % 12.4 % (3.3-12.3); RBC Red Blood Cell Count 4.72 M/uL (4.33-5.43)
[2018-10-28 17:01] LABS: ALT/SGPT 9 U/L (12-78); AST/SGOT 19 U/L (15-37); Albumin 2.5 g/dL (3.4-5.0); Alkaline Phosphatase 55 U/L (45-117); BUN Blood Urea Nitrogen 33 mg/dL (7-18); Bilirubin Direct 0.1 mg/dL (0-0.2); Bilirubin Total 0.2 mg/dL (0.2-1.0); Creatine Phosphokinase 59 U/L (39-308); Glucose Level 87 mg/dL (74-106); Lipase 189 U/L (73-393); Magnesium 2.8 mg/dL (1.8-2.4); NT PRO-BNP 5465 pg/mL (<450); Potassium 4.1 mmol/L (3.5-5.1); Protein, Total 6.6 g/dL (6.4-8.2); Sodium Level 137 mmol/L (136-145); Troponin (Emerg Dept Use Only) < 0.02 ng/mL (0.0-0.045)
[2018-10-28 17:05] LABS: Bicarbonate 43 mmol/L (21-32)
[2018-10-28] MEDS ORDERED: PIPER/TAZO/NS 3.375gm 3.375 GM/100 ML BAG ONE (17:13)
--- NOTE | 2018-10-28 17:13 | EDPHYS ---
Physician Documentation [facility] Name: Abner Thomas Age: 78 yrs Sex: Male : 1940 Arrival Date: 10/28/2018 Time: 16:06 Bed 4 Private MD: ED Physician Maco Mccord HPI: 10/28 16:20 This 78 yrs old Male presents to ER via EMS with complaints of Breathing cp Difficulty. 16:20 The patient has shortness of breath at rest. Onset: The symptoms/episode began/occurred cp gradually, and became worse today. Duration: The symptoms are continuous, and are steadily getting worse. Associated signs and symptoms: Pertinent negatives: chest pain, diaphoresis, fever, hemoptysis, vomiting. Severity of symptoms: in the emergency department the symptoms are unchanged despite home interventions. The patient has experienced similar episodes in the past, multiple times. Historical: - Allergies: 16:20 No Known Allergies; la1 - PMHx: 16:20 cancer of right kidney, mass and kidney removed.; Hyperlipidemia; Hypertension; COPD; la1 - Immunization history:: Adult Immunizations up to date. - Social history:: Smoking status: unknown. - Ebola Screening: : No symptoms or risks identified at this time. ROS: 16:25 Constitutional: Negative for body aches, chills, fever, poor PO intake. cp 16:25 Eyes: Negative for injury, pain, redness, and discharge. cp 16:25 ENT: Negative for drainage from ear(s), ear pain, sore throat, difficulty swallowing, difficulty handling secretions. 16:25 Cardiovascular: Negative for chest pain, edema. 16:25 Respiratory: Positive for shortness of breath, at rest. 16:25 Abdomen/GI: Negative for abdominal pain, nausea, vomiting, and diarrhea, constipation, anorexia, black/tarry stool, rectal bleeding. 16:25 Back: Negative for pain at rest, pain with movement, radiated pain. 16:25 : Negative for urinary symptoms. 16:25 Skin: Negative for cellulitis, rash. 16:25 Neuro: Negative for altered mental status, headache, syncope, near syncope. 16:25 All other systems are negative. Exam: 16:30 Head/Face: Normocephalic, atraumatic. cp 16:30 Constitutional: The patient appears alert, awake, non-diaphoretic, well developed, frail, in obvious distress, moderately distressed. 16:30 Eyes: Periorbital structures: appear normal, Pupils: equal, round, and reactive to light and accomodation, Extraocular movements: intact throughout, Conjunctiva: normal, no exudate, no injection, Sclera: no appreciated abnormality, Lids and lashes: appear normal, bilaterally. 16:30 ENT: External ear(s): are unremarkable, Ear canal(s): are normal, clear, TM's: bulging, is not appreciated, bilaterally, dullness, bilaterally, erythema, is not appreciated, bilaterally, Nose: is normal, Mouth: Lips: moist, Oral mucosa: moist, Posterior pharynx: Airway: no evidence of obstruction, patent, Tonsils: are normal in appearance, Uvula: midline, swelling, is not appreciated, erythema, is not appreciated, exudate, is not appreciated. 16:30 Neck: ROM/movement: is normal, is supple, without pain, no range of motions limitations, no meningismus, no nuchal rigidity, Lymph nodes: no appreciated lymphadenopathy. 16:30 Chest/axilla: Inspection: normal, Palpation: is normal, no crepitus, no tenderness. 16:30 Cardiovascular: Rate: normal, Rhythm: irregularly irregular, Edema: is not appreciated, JVD: is not appreciated. 16:30 Respiratory: moderate respiratory distress is noted, Respirations: labored breathing, that is moderate, shallow respirations, that is moderate, Breath sounds: decreased breath sounds, that are severe, throughout, stridor, is not appreciated. 16:30 Abdomen/GI: Inspection: abdomen appears normal, Bowel sounds: active, all quadrants, Palpation: abdomen is soft and non-tender, in all quadrants, rebound tenderness, is not appreciated, voluntary guarding, is not appreciated, involuntary guarding, is not appreciated. 16:30 Back: pain, is absent, ROM is normal. 16:30 Skin: cellulitis, is not appreciated, no rash present. 16:30 Neuro: Orientation: to person, place \T\ time. Mentation: is normal, Cerebellar function: is grossly normal, Motor: moves all fours, strength is normal, Sensation: is normal. 16:43 ECG was reviewed by the Attending Physician. cp Vital Signs: 16:20 Pulse 76; Resp 22; Temp 98.2; Pulse Ox 72% on R/A; la1 16:20 Pulse Ox 95% on 50% BiPAP; la1 16:23 BP 109 / 67; la1 16:55 BP 117 / 54; Pulse 100; Resp 20; Pulse Ox 96% on 50% BiPAP; la1 18:24 BP 115 / 74; Pulse 95; Resp 18; Pulse Ox 94% on 50% BiPAP; la1 MDM: 16:26 Patient medically screened. cp 17:10 Data reviewed: vital signs, nurses notes, lab test result(s), EKG, radiologic studies, cp plain films. 17:10 Test interpretation: by ED physician or midlevel provider: ECG, plain radiologic cp studies. 10/28 16:14 Order name: Basic Metabolic Panel 10/28 16:14 Order name: CBC with Diff gs 10/28 16:14 Order name: LFT's 10/28 16:14 Order name: Magnesium gs 10/28 16:14 Order name: NT PRO-BNP 10/28 16:14 Order name: PT-INR 10/28 16:14 Order name: Troponin (emerg Dept Use Only) 10/28 16:14 Order name: Blood Culture* 10/28 16:16 Order name: ABG cp 10/28 16:16 Order name: Blood Culture Adult (2) cp 10/28 16:16 Order name: BMP cp 10/28 16:16 Order name: CBC with Diff cp 10/28 16:16 Order name: CPK cp 10/28 16:16 Order name: Hepatic Function cp 10/28 16:16 Order name: Lipase cp 10/28 16:16 Order name: Magnesium cp 10/28 16:16 Order name: NT PRO-BNP cp 10/28 16:16 Order name: PT-INR cp 10/28 16:16 Order name: Ptt, Activated cp 10/28 16:16 Order name: Troponin (emerg Dept Use Only) cp 10/28 16:16 Order name: Influenza Screen (a \T\ B) cp 10/28 16:16 Order name: Procalcitonin cp 10/28 16:16 Order name: Lactate cp 10/28 16:30 Order name: ABG Arterial Blood Gas; Complete Time: 17:07 EDMS 10/28 16:56 Order name: Protime (+INR); Complete Time: 17:07 EDMS 10/28 16:56 Order name: PTT, Activated Partial Thromb; Complete Time: 17:07 EDMS 10/28 16:58 Order name: Lactate; Complete Time: 17:07 EDMS 10/28 17:02 Order name: CBC with Automated Diff; Complete Time: 17:07 EDMS 10/28 17:07 Interpretation: Normal except: HGB 13.5; MCV 87.6; RDW 15.4; LYM% 14.7; MN% 12.4. 10/28 17:05 Order name: Basic Metabolic Panel; Complete Time: 17:07 EDMS 10/28 17:05 Order name: Liver (Hepatic) Function; Complete Time: 17:07 EDMS 10/28 16:14 Order name: XRAY Chest (1 view) 10/28 16:14 Order name: EKG; Complete Time: 16:15 10/28 16:14 Order name: Cardiac monitoring; Complete Time: 16:25 10/28 16:14 Order name: EKG - Nurse/Tech; Complete Time: 16:25 10/28 16:14 Order name: IV Saline Lock; Complete Time: 16:25 10/28 16:14 Order name: Labs collected and sent; Complete Time: 16:25 10/28 16:14 Order name: O2 Per Protocol; Complete Time: 16:25 10/28 16:14 Order name: O2 Sat Monitoring; Complete Time: 16:25 10/28 16:14 Order name: BIPAP 10/28 16:16 Order name: BIPAP 10/28 16:16 Order name: XRAY CXR (1 view) 10/28 16:16 Order name: EKG; Complete Time: 16:17 10/28 16:16 Order name: Cardiac monitoring; Complete Time: 16:43 10/28 16:16 Order name: EKG - Nurse/Tech; Complete Time: 16:43 10/28 16:16 Order name: IV Saline Lock; Complete Time: 16:26 10/28 16:16 Order name: Labs collected and sent; Complete Time: 16:26 10/28 16:16 Order name: O2 Per Protocol; Complete Time: 16:26 10/28 17:05 Order name: Creatine Phosphokinase; Complete Time: 17:07 EDMS 10/28 17:05 Order name: Troponin (Emerg Dept Use Only); Complete Time: 17:07 EDMS 10/28 17:05 Order name: NT PRO-BNP; Complete Time: 17:07 EDMS 10/28 17:05 Order name: Magnesium; Complete Time: 17:07 EDMS 16 17:05 Order name: Lipase; Complete Time: 17:07 EDMS 10/28 17:06 Order name: Influenza Screen (A ; Complete Time: 17:07 EDMS 10/28 17:21 Order name: Procalcitonin; Complete Time: 15:47 EDMS 10/28 17:31 Order name: Blood Culture EDMS 10/28 17:57 Order name: RAD; Complete Time: 15:47 EDMS 10/29 15:48 Interpretation: Report reviewed. cp 10/28 16:16 Order name: O2 Sat Monitoring; Complete Time: 16:26 cp EC:43 Rate is 99 beats/min. Rhythm is irregularly irregular. QRS interval is prolonged at 120 cp msec. QT interval is normal. Interpreted by me. Reviewed by me. Administered Medications: 16:23 Drug: Albuterol - atroVENT (3:1) (2.5 mg - 0.5 mg) 3 ml Route: Nebulizer; la1 16:44 Follow up: Response: Marked relief of symptoms la1 16:24 Not Given (Duplicate Order): Albuterol - atroVENT (3:1) (2.5 mg - 0.5 mg) 3 ml la1 Nebulizer once 16:24 Not Given (Duplicate Order): AtroVENT Aerosol 0.5 mg Inhalation once la1 16:26 Drug: SOLU-Medrol 125 mg Route: IVP; Site: left forearm; la1 16:44 Follow up: Response: No adverse reaction la1 17:16 Drug: Zosyn 3.375 grams Route: IVPB; Infused Over: 60 mins; Site: left antecubital; la1 17:45 Follow up: IV Status: Completed infusion la1 17:45 Drug: LevaQUIN 750 mg Volume: 150 ml; Route: IVPB; Infused Over: 90 mins; Site: left la1 wrist; 17:46 Follow up: IV Status: Infusion continued upon admission la1 Disposition: 18:51 Co-signature as Attending Physician, Maco Mccord MD. Disposition: 10/28/18 17:12 Hospitalization ordered by Michele hWeat for Inpatient Admission. Preliminary diagnosis are Acute respiratory failure, unspecified whether with hypoxia or hypercapnia, Chronic atrial fibrillation. - Bed requested for Telemetry/MedSurg (Inpatient). - Status is Inpatient Admission. la1 - Condition is Stable. - Problem is new. - Symptoms have improved. UTI on Admission? No Signatures: Dispatcher [employer] EDMS Mohit Dotson RN RN la1 Clifford Keene PA PA cp Starr, Gregory, MD MD Zaria Castillo Corrections: (The following items were deleted from the chart) 17:12 17:12 Hospitalization Ordered by Michele Wheat MD for Inpatient Admission. Preliminary cp diagnosis is Acute respiratory failure, unspecified whether with hypoxia or hypercapnia. Bed requested for Telemetry/MedSurg (Inpatient). Status is Inpatient Admission. Condition is Stable. Problem is new. Symptoms have improved. UTI on Admission? No. cp 17:30 17:12 10/28/2018 17:12 Hospitalization Ordered by Michele Wheat MD for Inpatient eb Admission. Preliminary diagnosis is Acute respiratory failure, unspecified whether with hypoxia or hypercapnia; Chronic atrial fibrillation. Bed requested for Telemetry/MedSurg (Inpatient). Status is Inpatient Admission. Condition is Stable. Problem is new. Symptoms have improved. UTI on Admission? No. cp 18:25 17:30 10/28/2018 17:12 Hospitalization Ordered by Michele Wheat MD for Inpatient la1 Admission. Preliminary diagnosis is Acute respiratory failure, unspecified whether with hypoxia or hypercapnia; Chronic atrial fibrillation. Bed requested for Telemetry/MedSurg (Inpatient). Status is Inpatient Admission. Condition is Stable. Problem is new. Symptoms have improved. UTI on Admission? No. eb
--- NOTE | 2018-10-28 17:13 | ER ---
Nurse's Notes [facility] Name: Abner Thomas Age: 78 yrs Sex: Male : 1940 Arrival Date: 10/28/2018 Time: 16:06 Bed 4 Private MD: Diagnosis: Acute respiratory failure, unspecified whether with hypoxia or hypercapnia;Chronic atrial fibrillation Presentation: 10/28 16:17 Presenting complaint: EMS states: Increasing SOB over the last couple days, hx of la1 COPD/CHF, Room air sat 72%. Transition of care: patient was not received from another setting of care. Onset of symptoms was October 28, 2018. Risk Assessment: Do you want to hurt yourself or someone else? Patient reports no desire to harm self or others. Initial Sepsis Screen: Does the patient meet any 2 criteria? No. Patient's initial sepsis screen is negative. Does the patient have a suspected source of infection? No. Patient's initial sepsis screen is negative. Care prior to arrival: None. 16:17 Method Of Arrival: EMS: [facility] la1 16:17 Acuity: MALATHI 2 la1 Historical: - Allergies: 16:20 No Known Allergies; la1 - PMHx: 16:20 cancer of right kidney, mass and kidney removed.; Hyperlipidemia; Hypertension; COPD; la1 - Immunization history:: Adult Immunizations up to date. - Social history:: Smoking status: unknown. - Ebola Screening: : No symptoms or risks identified at this time. Screenin:28 Abuse screen: Denies threats or abuse. Nutritional screening: No deficits noted. la1 Tuberculosis screening: No symptoms or risk factors identified. Fall Risk None identified. Assessment: 16:27 General: Appears comfortable, Behavior is calm, cooperative. Pain: Denies pain. Neuro: la1 Level of Consciousness is awake, alert, obeys commands, Oriented to person, place, time, situation. Cardiovascular: Heart tones S1 S2 present Capillary refill < 3 seconds Patient's skin is warm and dry. Rhythm is sinus rhythm. Respiratory: Airway is patent Trachea midline Respiratory effort is even, labored, Respiratory pattern is tachypnea Breath sounds are coarse Breath sounds are diminished bilaterally. the patient has severe shortness of breath. GI: No signs and/or symptoms were reported involving the gastrointestinal system. : No signs and/or symptoms were reported regarding the genitourinary system. 17:46 Reassessment: Patient appears in no apparent distress at this time. No changes from la1 previously documented assessment. Patient and/or family updated on plan of care and expected duration. Pain level reassessed. Vital Signs: 16:20 Pulse 76; Resp 22; Temp 98.2; Pulse Ox 72% on R/A; la1 16:20 Pulse Ox 95% on 50% BiPAP; la1 16:23 BP 109 / 67; la1 16:55 BP 117 / 54; Pulse 100; Resp 20; Pulse Ox 96% on 50% BiPAP; la1 18:24 BP 115 / 74; Pulse 95; Resp 18; Pulse Ox 94% on 50% BiPAP; la1 ED Course: 16:06 Patient arrived in ED. iw 16:13 Maco Mccord MD is Attending Physician. gs 16:14 Clifford Keene PA is PHCP. cp 16:14 Mohit Dotson, RN is Primary Nurse. la1 16:18 Triage completed. la1 16:20 Initial lab(s) drawn, by me, sent to lab. First set of blood cultures drawn by me, Flu dh3 and/or RSV swab sent to lab. Inserted saline lock: 22 gauge in left forearm, using aseptic technique. Blood collected. 16:23 Arm band placed on right wrist. la1 16:28 Bed in low position. Call light in reach. Side rails up X 1. school bus monitor on. Pulse la1 ox on. NIBP on. 16:43 Second set of blood cultures drawn by me, by venipuncture 23G to right forearm. dh3 16:50 X-ray completed. Portable x-ray completed in exam room. Patient tolerated procedure la2 well. 17:09 Michele Wheat MD is Hospitalizing Provider. cp 18:24 No provider procedures requiring assistance completed. Patient admitted, IV remains in la1 place. Administered Medications: 16:23 Drug: Albuterol - atroVENT (3:1) (2.5 mg - 0.5 mg) 3 ml Route: Nebulizer; la1 16:44 Follow up: Response: Marked relief of symptoms la1 16:24 Not Given (Duplicate Order): Albuterol - atroVENT (3:1) (2.5 mg - 0.5 mg) 3 ml la1 Nebulizer once 16:24 Not Given (Duplicate Order): AtroVENT Aerosol 0.5 mg Inhalation once la1 16:26 Drug: SOLU-Medrol 125 mg Route: IVP; Site: left forearm; la1 16:44 Follow up: Response: No adverse reaction la1 17:16 Drug: Zosyn 3.375 grams Route: IVPB; Infused Over: 60 mins; Site: left antecubital; la1 17:45 Follow up: IV Status: Completed infusion la1 17:45 Drug: LevaQUIN 750 mg Volume: 150 ml; Route: IVPB; Infused Over: 90 mins; Site: left la1 wrist; 17:46 Follow up: IV Status: Infusion continued upon admission la1 Outcome: 17:12 Decision to Hospitalize by Provider. cp 18:24 Admitted to Med/surg accompanied by tech, via wheelchair, room 217. la1 18:24 Condition: stable 18:24 Instructed on the need for admit. 18:25 Patient left the ED. la1 Signatures: Aracely Abreu RN RN Mohit Dotson RN RN la1 Clifford Keene PA PA cp Herrera, Deanna [facility] Maco Mccord MD MD gs Ardoin Jaja la2
[2018-10-28] MEDS ORDERED: Levofloxacin 750mg IV 750 MG/150 ML BAG IV ONE (17:39)
--- NOTE | 2018-10-28 17:57 | RAD REPORT ---
EXAM DESCRIPTION: RAD - Chest Single View - 10/28/2018 4:52 pm CLINICAL HISTORY: Increasing shortness of breath, history of CHF, history of COPD, decreased O2 satu ration COMPARISON: October 19 TECHNIQUE: AP portable chest image was obtained 1648 hours . FINDINGS: Bilateral pleural effusions are present similar on the right and slightly enlarged on the left. Interstitial and alveolar opacities are present. This is more pronounced in the lateral mid lef t lung field. Cardiomediastinal silhouette remains enlarged. Trachea is midline. No pneumothorax. Por t-A-Cath in place on the right. No acute bony abnormality seen. No acute aortic findings suspected. IMPRESSION: Bilateral pleural effusions with interstitial and alveolar opacification present. Stable cardiomegaly. Lung markings are focally more pronounced in the lateral mid chest. Findings favor CHF/volume overload. Lateral left mid lung field superimposed pneumonia is not exclude d but felt to be lesser in likelihood.
[2018-10-28] MEDS ORDERED: ONDANSETRON 4 MG/2 ML VIAL IV PRN (19:19)
[2018-10-28] MEDS ORDERED: ACETAMINOPHEN 500 MG TAB PO PRN (19:19)
[2018-10-28] MEDS ORDERED: IPRATROPIUM BROM 0.5MG/2.5ML NEB PRN (19:19)
[2018-10-28] MEDS ORDERED: ALBUTEROL 2.5 MG/3 ML NEB SOL NEB PRN (19:19)
[2018-10-28] MEDS ORDERED: FUROSEMIDE 20 MG/ 2ML VIAL IV ONE (19:19)
[2018-10-28 21:24] LABS: Arterial Blood Carboxyhemoglob 1.5 % (0-1.5); Blood Gas Oxyhemoglobin 91.5 % (94-97); Blood O2 Saturation 93.3 % (92-98.5)
[2018-10-28 22:25] VITALS: BMI 22.1
[2018-10-29] MEDS: METHYLPREDNISOLONE 40 MG INJ IV SCH ×3 (00:38→17:00)
--- NOTE | 2018-10-29 00:40 | HP ---
Date of Admission: 10/28/2018 Primary Care Physician: Kadeem Nino M.D. Chief Complaint: Shortness of breath. Code Status: Full code. History Of Present Illness: The patient is an 78-year-old male with past medical history of congesti ve heart failure, COPD, atrial fibrillation, on anticoagulation, history of lung cancer and renal can cer, who was in his usual state of health until day of admission. Several days prior to admission, t he patient started having worsening shortness of breath more than his baseline. The patient is O2 de pendent about 3 L. The patient had to turn up his oxygen to 4 L, had some cough, but no significant sputum production. Denies any ill contacts. No fever or chills. The patient unable to get around h is house without significant dyspnea. The patient's symptoms are constant, severe, progressively wor sening. Therefore, he came into the hospital for further evaluation. Upon arrival, his O2 saturatio ns were in the 70s on room air. He was tachypneic. He was afebrile. The patient was started on BiP AP. His workup showed normal WBC count. His ABGs showed pH of 7.36 with a pCO2 of 79.8, bicarb of 4 4, pO2 of 63. The patient's BNP was 5465. He was started on BiPAP and was given breathing treatment s as well as IV steroids. The patient's O2 saturations improved on BiPAP. The patient was then refe rred for admission to the hospitalist service as Dr. Nino is out of town and will not return until Monday afternoon. When the patient was seen in the ER, he was awake, alert, oriented x3, in some mi ld respiratory distress, on BiPAP. Past Medical History: Congestive heart failure, COPD, oxygen dependent, history of renal cancer, sta tus post surgery, nephrectomy, chemotherapy, history of lung cancer, atrial fibrillation, atrial fibr illation, on anticoagulation, hypertension, and hyperlipidemia. Past Surgical History: Nephrectomy. Allergies: NO KNOWN DRUG ALLERGIES. Home Medications: List reviewed. Family History: No history of premature coronary artery disease. Social History: The patient is a former smoker. Does not drink. Lives with his . Fairly indep endent in his activities of daily living. Does not use any assistive ambulatory devices. Review of Systems: A 10-point system reviewed, negative except as per HPI. Physical Examination: Vital Signs: Pulse 76, respirations 22, temperature 98.2, O2 72% on room air, improved to 95%, on 50 % FiO2, BiPAP. Blood pressure is 109/67. General: Awake, alert, oriented x3. Elderly male, in mild respiratory distress. HEENT: Normocephalic, atraumatic. PERRLA, EOMI. Oropharynx is clear. Poor dentition. Neck: Supple. No JVD. Trachea midline. CV: S1, S2. Irregularly irregular. Peripheral pulses weak bilaterally. Respiratory: Diminished breath sounds. Diffuse wheezing heard. The patient is tachypneic with use of accessory muscles. No stridor. Gastrointestinal: Abdomen is soft, nontender, nondistended. Positive bowel sounds. No guarding or rigidity. Extremities: No clubbing, cyanosis, or edema. No calf tenderness. Neuro: Cranial nerves 2-12 intact grossly. No focal neurological deficit. Speech is normal. Stren gth is symmetric bilateral upper and lower extremities. Sensation intact to light touch. Skin: No rashes. Normal skin turgor. Psych: Deferred. Laboratory Data: Sodium 137, potassium 4.1, chloride 92, CO2 43, BUN 33, creatinine 1.2, glucose 87, lactate 1.2, calcium 9.1, magnesium 2.8. Troponin less than 0.02. BNP 5465. Albumin 2.5, lipase 1 89. Procalcitonin less than 0.05. ABG; pH 7.36, pCO2 79.8, pO2 63.5, bicarb 44.4. INR 1.15. WBC 8 .3, H and H 13.5 and 41.4, platelets 253, neutrophils 72%. Influenza screen is negative. Chest x-ra y, no official report; however, chronic fibrotic changes present. Blunting of the costophrenic angle on the left. Possible infiltrate worse compared to previous x-ray on 10/19/2018. Assessment And Plan: An 78-year-old male with: 1.Acute on chronic respiratory failure. The patient now requiring BiPAP, normally on 3 L of oxygen via nasal cannula secondary to chronic obstructive pulmonary disease exacerbation. 2.Acute chronic obstructive pulmonary disease exacerbation. We will continue with BiPAP. The patie nt has hypercapnia. We will start on steroid IV and nebulizer treatments. 3.Atrial fibrillation, rate controlled, on anticoagulation. We will monitor with cardiac telemetry. 4.History of congestive heart failure. Echocardiogram from earlier this year shows EF of 52%. Swanson tolic dysfunction compensated. We will continue with fluid restriction. Monitor I's and O's. 5.Essential hypertension. Resume home medications as appropriate. 6.Dyslipidemia. 7.History of renal cancer in remission. 8.Hypermagnesemia. We will repeat level in a.m. Continue to monitor. 9.Hypoalbuminemia with moderate protein calorie malnutrition. Plan: Admit the patient to Med-Surg, place as inpatient Med-Surg greater than 2 midnights. NEMO Voice ID: [id number]
[2018-10-29 06:29] LABS: Absolute Lymphocytes (CBC) 0.3 K/uL (0.7-4.9); Absolute Monocytes 0.1 K/uL (0.1-1.3); Absolute Neutrophil 2.8 K/uL (1.8-8.0); Basophils % 0.3 % (0-1.3); Hematocrit 43.3 % (39.6-49.0); Lymphocytes % 9.8 % (15.3-44.8); MPV 8.7 fL (7.6-11.3); RBC Red Blood Cell Count 4.95 M/uL (4.33-5.43)
[2018-10-29 06:42] LABS: Magnesium 2.8 mg/dL (1.8-2.4); Potassium 4.7 mmol/L (3.5-5.1)
--- NOTE | 2018-10-29 07:05 | EKG ---
Test Date: 2018-10-28 Test Time: 16:36:06 Sales Account Coordinator: LA MEASUREMENT RESULTS: Intervals: Rate: 99 WA: QRSD: 120 QT: 344 QTc: 441 Fithian: P: WA: QRS: -46 T: 32 INTERPRETIVE STATEMENTS: Atrial fibrillation with premature ventricular or aberrantly conducted complexes Left axis deviation Inferior infarct, age undetermined Anteroseptal infarct, age undetermined Abnormal ECG Compared to ECG 12/10/2017 17:05:10 Myocardial infarct finding now present Sinus rhythm no longer present Atrial premature complex(es) no longer present T-wave abnormality no longer present Electronically Signed On 10-29-18 07:04:12 SALESMAN/OWNER by Armand Norton
[2018-10-29 07:40] LABS: Blood Morphology Comment NOT SEEN (NOT SEEN); Platelet Estimate ADEQ
[2018-10-29] MEDS ORDERED: UMECLIDINIUM BROMIDE IH SCH (09:00)
[2018-10-29] MEDS: HOME MED 1 EA UNK (Budesonide/Formoterol Fumarate [Symbicort 80-4.5 Mcg Inhaler] 2 PUFF) IH SCH ×2 (09:00→21:00)
[2018-10-29] MEDS ORDERED: BUMETANIDE 1 MG TABLET PO SCH (09:00)
[2018-10-29] MEDS: LEVOTHYROXINE SOD 0.1 MG TAB PO SCH (10:10)
[2018-10-29] MEDS: RIVAROXABAN 15 MG TABLET PO SCH (10:10)
[2018-10-29] MEDS: DOCUSATE NA 100 MG CAP PO SCH ×2 (10:11→21:35)
[2018-10-29] MEDS: CARVEDILOL 6.25 MG TAB PO SCH ×2 (10:11→21:36)
--- NOTE | 2018-10-29 15:31 | EKG ---
Test Date: 2018-10-29 Test Time: 13:34:01 Cake Icer And Packer: ELGIN MEASUREMENT RESULTS: Intervals: Rate: 92 AZ: 172 QRSD: 112 QT: 370 QTc: 457 [place]: P: 30 AZ: 172 QRS: -20 T: 62 INTERPRETIVE STATEMENTS: Sinus rhythm with marked sinus arrhythmia Anterior infarct, age undetermined Abnormal ECG Compared to ECG 10/28/2018 16:36:06 Atrial fibrillation no longer present Ventricular premature complex(es) no longer present Left-axis deviation no longer present Myocardial infarct finding still present Electronically Signed On 10-29-18 15:30:17 EDITORIAL CLERK by Armand Norton
--- NOTE | 2018-10-29 17:35 | PN ---
Date of Progress Note: 10/29/2018 Subjective: Patient seen and examined. Chart reviewed and case discussed with RN. The patient stat es his breathing is better, however, still on BiPAP. Medications: List reviewed. Physical Examination: Vital Signs: Temperature 97.7, heart rate 101, blood pressure 114/71, respirations 28, O2 97% on BiP AP 50% FiO2. General: Awake, alert, oriented x3, in moderate respiratory distress. Elderly male, ill-appearing. CV: S1, S2. Irregularly irregular. Pulses weak bilaterally. Respiratory: The patient is tachypneic. Decreased breath sounds and wheezing heard. The patient's use of accessory muscles present. Gastrointestinal: Abdomen is soft, nontender, nondistended. Positive bowel sounds. Extremities: No clubbing, cyanosis, or edema. The. Neurologic: Nonfocal. Laboratory Data: Sodium 138, potassium 4.7, chloride 91, CO2 41, BUN 34, creatinine 1.4, glucose 152 , calcium 9.4, magnesium 2.8. ABG from yesterday evening shows pH 7.4, pCO2 68, PO2 60, and bicarb 4 1. The WBC 3.2, hemoglobin and hematocrit 14.2 and 43.3, platelets 317, neutrophils 88%. Blood cult ures pending. Assessment: An 78-year-old male with: 1.Acute on chronic respiratory failure, still requiring BiPAP, was able to come off it for breakfast , however, became tachypneic with increased work of breathing and was placed back on BiPAP. ABG show ed some improvement with pCO2 trending down, however, still very elevated. We will obtain a pulmonol ogy consultation and repeat DVT level. 2.Acute chronic obstructive pulmonary disease exacerbation continue supplemental oxygenation, curren tly on BiPAP. Continue steroids and nebulizer treatments. We will resume home inhalers. 3.Atrial fibrillation, rate controlled on anticoagulation. 4.History of congestive heart failure, diastolic dysfunction. Currently compensated. Ejection frac tion of 52%. Continue fluid restriction and sodium restriction. 5.Essential hypertension, stable. 6.Dyslipidemia. 7.History of renal cancer, in remission. 8.Hypermagnesemia. We will continue to monitor. 9.Hypoalbuminemia with moderate protein calorie malnutrition. Albumin 2.5. Plan: Pulmonology consultation. Repeat ABG. The patient will be transferred to Dr. Nino's servi ce in a.m. once he is back in [facility]. /DERRICK Voice ID: [id number] Report ID: [id number]
[2018-10-29] MEDS ORDERED: POLYETHYL GLY 3350 17 GM/DOSE PO SCH (18:00)
[2018-10-29] MEDS: ALBUTEROL 2.5 MG/3 ML NEB SOL NEB SCH ×2 (19:34→23:35)
[2018-10-29] MEDS: IPRATROPIUM BROM 0.5MG/2.5ML NEB SCH ×2 (19:34→23:35)
[2018-10-29] MEDS: ATORVASTATIN 20 MG TAB PO SCH (21:35)
[2018-10-29] MEDS: POLYETHYL GLY 3350 17 GM/DOSE PO SCH (21:35)
[2018-10-30] MEDS: METHYLPREDNISOLONE 40 MG INJ IV SCH (00:47)
[2018-10-30] MEDS: ALBUTEROL 2.5 MG/3 ML NEB SOL NEB SCH ×2 (03:20→08:10)
[2018-10-30] MEDS: IPRATROPIUM BROM 0.5MG/2.5ML NEB SCH ×4 (03:20→20:38)
[2018-10-30] MEDS: LEVOTHYROXINE SOD 0.1 MG TAB PO SCH (05:40)
[2018-10-30 06:10] LABS: Absolute Lymphocytes (CBC) 0.3 K/uL (0.7-4.9); Absolute Monocytes 0.2 K/uL (0.1-1.3); Absolute Neutrophil 6.6 K/uL (1.8-8.0); Basophils % 0.1 % (0-1.3); Hematocrit 39.6 % (39.6-49.0); Lymphocytes % 4.4 % (15.3-44.8); MPV 8.4 fL (7.6-11.3); Monocytes % 2.8 % (3.3-12.3); RBC Red Blood Cell Count 4.58 M/uL (4.33-5.43)
[2018-10-30 06:33] LABS: Magnesium 2.8 mg/dL (1.8-2.4); Potassium 4.5 mmol/L (3.5-5.1)
--- NOTE | 2018-10-30 08:26 | P.CNS ---
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 [place] patient was prescribed in [place] and Symbicort and is compliant he also has nebulizers and oxygen at home despite compliance he has become progressively more short of breath Allergies No Known Drug Allergies Allergy (Verified 05/31/18 16:51) Unknown Home Medications: Levothyroxine [Synthroid*] 0.1 mg PO [id number] 04/06/13 Lovastatin [Mevacor*] 40 mg PO BEDTIME 04/06/13 Carvedilol [Coreg*] 6.25 mg PO BID #60 tab 04/12/13 Rivaroxaban [Xarelto*] 15 mg PO DAILY #30 tablet 04/12/13 Docusate [Colace Cap*] 100 mg PO BID 08/09/16 Budesonide/Formoterol Fumarate [Symbicort 80-4.5 Mcg Inhaler] 2 puff IH BID 01/28 Ipratropium Mdi [Atrovent Hf Inhaler*] 2 puff IH Q4H PRN 05/15/18 Umeclidinium [place] [Incruse Ellipta] 2 puff IH DAILY 05/15/18 Bumetanide [Bumex] 2 mg PO BID 10/28/18 Budesonide/Formoterol Fumarate [Symbicort 160-4.5 Mcg Inhaler] 2 puff IH BID Ipratropium [place] [Atrovent Hfa] 12.9 gm IH DAILY PRN 10/29/18 Polyethylene Glycol 3350 [Miralax] 17 gm PO DAILY 10/29/18 Umeclidinium [place] [Incruse Ellipta] 2 appl IH DAILY 10/29/18 - Past Medical/Surgical History Diabetic: No -: HTN -: High Cholesterol -: Hypothyroidism -: [place] x2 () -: umbilical hernia -: inguinal hernia -: [place] -: chf -: afib -: Right Kidney Cancer- Jul 2016 completed Chemotherapy -: Kana Cataract surgery -: Right Kidney removal on AUG 2016 - Family History Father Medical History: Hypertension, Stroke Notes: aneursym Mother Notes: alzhemiers Brother Medical History: Heart disease, Hypertension Notes: chf Sister Medical History: Heart disease, Hypertension, Cancer Notes: fibromyalgia, breast cancer - Social History Smoking Status: Unknown if ever smoked Alcohol use: No CD- Drugs: No Caffeine use: Yes Place of Residence: Home Review of Systems 10-point ROS is otherwise unremarkable General: Weakness Respiratory: Cough, Shortness of Breath Physical Examination Temp Pulse Resp BP Pulse Ox 97.6 F 78 16 121/56 L 95 10/30/18 04:00 10/30/18 04:00 10/30/18 04:00 10/30/18 04:00 10/30/18 04:00 General: Alert, Oriented x3, Moderate distress HEENT: Atraumatic Neck: Supple Respiratory: Diminished, Expiratory wheezes Cardiovascular: No edema, Normal S1 S2 Gastrointestinal: Normal bowel sounds, Soft and benign, No tenderness Musculoskeletal: No clubbing, No swelling - Problems (1) Acute and chronic respiratory failure Onset Date: 10/29/18 Current Visit: Yes Status: Acute Plan: Patient is 78 years of age admitted with worsening dyspnea he has a history of lower extremity edema hypoxic hypercapnic respiratory failure chest x-ray shows bilateral pleural effusions patient has a history of congestive heart failure is BNP is very elevated no evidence of an obvious infection change to p.o. prednisone schedule Brovanna. Albuterol q. for RPR and Atrovent q. 6 scheduled add Lasix and spironolactone 2D echo with Doppler pending Qualifiers: Respiratory failure complication: hypoxia and hypercapnia Qualified Code(s) : J96.21 - Acute and chronic respiratory failure with hypoxia; J96.22 - Acute and chronic respiratory failure with hypercapnia
[2018-10-30] MEDS ORDERED: FUROSEMIDE 40 MG/4 ML VIAL IV SCH (09:00)
[2018-10-30] MEDS ORDERED: HOME MED 1 EA UNK (Polyethylene Glycol 3350 [Miralax] 17 GM) PO SCH ×2 (09:00)
[2018-10-30] MEDS: ARFORMOTEROL TARTRATE 15 MCG/2 ML VIAL.NEB NEB SCH (09:05)
[2018-10-30] MEDS: RIVAROXABAN 15 MG TABLET PO SCH (09:59)
[2018-10-30] MEDS: CARVEDILOL 6.25 MG TAB PO SCH ×2 (09:59→20:33)
[2018-10-30] MEDS: SPIRONOLACTONE 25 MG TABLET PO SCH (09:59)
[2018-10-30] MEDS: POLYETHYL GLY 3350 17 GM/DOSE PO SCH (09:59)
[2018-10-30] MEDS: predniSONE 20 MG TAB PO SCH ×2 (09:59→20:33)
[2018-10-30] MEDS: DOCUSATE NA 100 MG CAP PO SCH ×2 (10:00→20:32)
--- NOTE | 2018-10-30 12:32 | ECHO ---
HEIGHT: 5 ft 8 in WEIGHT: 145 lb 14.4 oz DATE OF STUDY: 10/30/[address]: Kadeem Nino MD 2-DIMENSIONAL: YES M.MODE: YES DOPPLER: YES COLOR FLOW: YES TDS: NO PORTABLE: NO DEFINITY: NO BUBBLE STUDY: NO DIAGNOSIS: CONGESTIVE HEART FAILURE CARDIAC HISTORY: CATHERIZATION: SURGERY: PROSTHETIC VALVE: PACEMAKER: MEASUREMENTS (cm) DIASTOLIC (NORMALS) SYSTOLIC (NORMALS) IVSd 0.9 (0.6-1.2) LA Diam 3.8 (1.9-4.0) LVEF 57% LVIDd 5.8 (3.5-5.7) LVIDs 4.1 (2.0-3.5) %FS 30% LVPWd 1.0 (0.6-1.2) Ao Diam 2.9 (2.0-3.7) 2 DIMENSIONAL ASSESSMENT: RIGHT ATRIUM: NORMAL LEFT ATRIUM: NORMAL RIGHT VENTRICLE: NORMAL LEFT VENTRICLE: NORMAL TRICUSPID VALVE: NORMAL MITRAL VALVE: MITRAL ANNULAR CALCIFICATION PULMONIC VALVE: NORMAL AORTIC VALVE: AORTIC SCLEROSIS PERICARDIAL EFFUSION: NONE AORTIC ROOT: NORMAL LEFT VENTRICULAR WALL MOTION: NORMAL EJECTION FRACTION. DOPPLER/COLOR FLOW: MILD TRICUSPID REGURGITATION AND MITRAL REGURGITATION. COMMENTS: TECHNICALLY DIFFICULT STUDY. MITRAL ANNULAR CALCIFICATION. DECREASED LEFT VENTRICULAR COMPLIANCE. AORTIC SCLEROSIS. NORMAL EJECTION FRACTION. MILD TRICUSPID REGURGITATION AND MITRAL REGURGITATION. TECHNOLOGIST: AZAEL FLEMING [facility]
[2018-10-30] MEDS: BUMETANIDE 1 MG TABLET PO SCH (15:00)
--- NOTE | 2018-10-30 15:22 | RAD REPORT ---
EXAM DESCRIPTION: CT - Thorax Wo Con - 10/30/2018 3:02 pm CLINICAL HISTORY: Shortness of breath, pulmonary failure, history of renal cell carcinoma and COPD COMPARISON: CT chest November 2017 TECHNIQUE: Axial 5 mm thick images of the chest were obtained without IV contrast. Axial 1 millimete r thick reconstruction images were generated and reviewed. All CT scans are performed using dose optimization technique as appropriate and may include automated exposure control or mA/KV adjustment according to patient size. FINDINGS: Fluid retention is identifiable in the subcutaneous fatty tissues of the mid and lower natalio st. There is fluid retention and stranding in the pericardial fat. On the standard 5 mm and high-reso lution images bronchial wall thickening changes are present. Interstitial thickening in the mid and l ower lung finley present. Alveolar opacification is present along the posterior aspect of the left up per lobe from the aortic arch level to the base. There is alveolar opacification in each lower lobe s urrounding the bronchi. Patchy alveolar opacification is present along the major fissure of the super ior aspect right upper lobe. In the posterior left upper lobe (image [id number]) there is a 14 x 12 mm spiculated mass. This is new fr om November. Irregular alveolar opacification present in the anterior midportion of the left upper lob e at the aortic arch level. Approximately 10 centimeter sized loculated pleural effusion is present in the posterior gutter on th e right. The loculated pleural fluid seen in the lateral lower left lung field has mostly resolved. No abnormal mediastinal or hilar masses or lymphadenopathy seen. Cardiomegaly is present with minimal pericardial effusion. This is similar to comparison. Assessment is limited in the absence of IV cont rast. No chest wall mass or abnormal axillary lymphadenopathy. IMPRESSION: Multiple sites of airspace opacification are present in all lobes. In the acute clinical setting, bilateral pneumonia is favored. Overall interstitial thickening with fluid retention in the subcutaneous fatty tissues and pericardia l fat likely indicate failure or volume overload component. Stable 10 cm loculated pleural effusion right gutter. The left loculated pleural effusion has substan tially reduced in size since November. Spiculated 14 x 12 mm density in the posterior superior left upper lobe new from prior imaging. This is probably part of the scattered multi lobar pneumonia findings. This can be monitored on subsequent imaging and 4-6 months.
--- NOTE | 2018-10-30 16:46 | RAD REPORT ---
EXAM DESCRIPTION: RAD - Chest Single View - 10/30/2018 4:23 pm CLINICAL HISTORY: CHF, SOB Chest pain. COMPARISON: Chest Single View dated 10/28/2018; Chest Pa And Lat (2 Views) dated 10/19/2018; Chest Si ngle View dated 05/31/2018; Chest Pa And Lat (2 Views) dated 12/09/2017 FINDINGS: Portable technique limits examination quality. Moderate bilateral pulmonary opacities are present with bilateral pleural effusion, mildly improved. The heart is moderately enlarged in size. Right-sided port catheter tip in the SVC. IMPRESSION: Mild improvement in CHF or pneumonia pattern since comparative study.
--- NOTE | 2018-10-30 16:55 | CON ---
Date of Consultation: 10/30/2018 Additional Admitting Physician: Dr. Michele Wheat Reason For Consultation: Possible congestive heart failure. History Of Present Illness: Mr. Thomas is an 78-year-old white male, whom I saw on 10/30/2018. He has a history of hypertension, dyslipidemia, COPD, renal cancer status post right kidney removal. He is on home oxygen with COPD, does not really have any previous history of congestive heart failure, but came in with COPD exacerbation. There were some questions of volume overload and pneumonia on chest x-ray. He is improving, but he is still on oxygen. Denies any PND. Denies any orthopnea or pedal edema. He denies any palpitation or syncope. He was noted to have a pO2 of 68, pCO2 of 68, consiste nt with CO2 retention. His creatinine is 1.4. His troponin was negative. His BNP was 5465. He has had a history of atrial fibrillation in the past for which he takes Xarelto. An echocardiogram in [facility] of 2017 was normal with a normal ejection fraction. He is now in sinus rhythm. Past Medical History: As stated above. Allergies: NONE. Review of Systems: Negative. Social History: Positive for previous tobacco. Family History: Positive for heart disease and hypertension. Medications: His medications at home include Xarelto, Mevacor, inhalers, Coreg, Bumex, and Synthroid . Physical Examination: Vital Signs: Stable. He was in sinus rhythm. O2 saturation was adequate on nasal cannula. HEENT: Negative. Neck: Supple, without any bruit, lymphadenopathy, JVD, or thyromegaly. Chest: Clear to auscultation and percussion on the right. He has some wheezing and rales in the lef t base. Cardiac: Revealed regular rhythm and rate with ectopy. Abdomen: Benign. Extremities: Revealed no clubbing or cyanosis. He has chronic venous insufficiency changes. His pu lses are adequate in the dorsalis pedis and posterior tibial bilaterally. Neurological: He was intact. Diagnostic Data: His EKG shows sinus rhythm with sinus arrhythmia and an old anterior CT. PO2 was 6 8, pCO2 of 68, pH 7.40. Creatinine is 1.4. BNP is 5465. Troponin is negative. Impression And Plan: 1.I believe, Mr. Thomas's issue is chronic obstructive pulmonary disease exacerbation rather than wayne estive heart failure. There is also a question of pneumonia on chest x-ray. He is on appropriate th erapy for pneumonia and chronic obstructive pulmonary disease as well as congestive heart failure. T here is an echocardiogram that is pending, we will see what that shows. His echocardiogram in Januar y was normal as long as ejection fraction is concerned. 2.His other problems include CO2 retention with chronic obstructive pulmonary disease. 3.Status post renal cancer on the right, status post removal of the kidney. Creatinine is 1.4. 4.His other problems include hypertension, dyslipidemia, both of which are controlled at this point. The case was discussed with Dr. Wheat, with the patient, with the nurses. The patient was instructed on low-salt diet and compliance with medical therapy. We will continue his medical regimen. We pete l see what the echocardiogram shows. He is really not a candidate for invasive cardiac workup considering his COPD and overall status. I will continue to follow him along . CLIF/DERRICK Voice ID: [id number] Report ID: [id number]
[2018-10-30] MEDS ORDERED: AZITHROMYCIN IV 500 MG in NA CHLORIDE 0.9% 250 ML IVPB ONE (19:03)
[2018-10-30] MEDS: ATORVASTATIN 20 MG TAB PO SCH (20:32)
[2018-10-30] MEDS: ENSURE ENLIVE 237 ML CAN PO SCH (20:35)
[2018-10-30] MEDS: ALBUTEROL 2.5 MG/3 ML NEB SOL NEB PRN (20:38)
[2018-10-30] MEDS ORDERED: AZITHROMYCIN 500 MG/250 ML BAG ONE (21:18)
[2018-10-31] MEDS ORDERED: ASPIRIN 81 MG CHEWABLE TABLET ONE (00:22)
[2018-10-31] MEDS: IPRATROPIUM BROM 0.5MG/2.5ML NEB SCH ×4 (02:09→20:10)
[2018-10-31] MEDS: ARFORMOTEROL TARTRATE 15 MCG/2 ML VIAL.NEB NEB SCH ×3 (02:11→20:09)
[2018-10-31] MEDS: LEVOTHYROXINE SOD 0.1 MG TAB PO SCH (05:58)
[2018-10-31 06:09] LABS: BUN Blood Urea Nitrogen 52 mg/dL (7-18); Glucose Level 140 mg/dL (74-106); Sodium Level 140 mmol/L (136-145); Thyroid Stimulating Hormone 0.783 uIU/mL (0.360-3.740)
[2018-10-31 06:18] LABS: Bicarbonate > 45 mmol/L (21-32)
--- NOTE | 2018-10-31 07:42 | P.PN ---
Subjective Date of Service: 10/31/18 Chief Complaint: Respiratory distress Patient's condition has not changed he still requiring BiPAP the carbonate is even more elevated denies any fever chills or cough CT scan is abnormal Review of Systems General: Weakness Respiratory: Shortness of Breath Physical Examination - Vital Signs Temperature: 97.4 F Blood Pressure: 122/58 Pulse: 77 Respirations: 18 Pulse Ox (%): 98 - Physical Exam General: Alert, Oriented x3, Cooperative Respiratory: Crackles/rales (Crackles bilaterally) Cardiovascular: No edema, Regular rate/rhythm Assessment & Plan - Problems (Diagnosis) (1) Acute and chronic respiratory failure Onset Date: 10/29/18 Current Visit: Yes Status: Acute Plan: Patient admitted with acute on chronic respiratory failure continue with the BiPAP CT scan shows bilateral interstitial changes possible infection although is white count is normal pro calcitonin level is negative change to IV cefepime I have added Diamox continue with spironolactone and Bumex ejection fraction is depressed labs reviewed repeat blood gases ordered Qualifiers: Respiratory failure complication: hypoxia and hypercapnia Qualified Code(s) : J96.21 - Acute and chronic respiratory failure with hypoxia; J96.22 - Acute and chronic respiratory failure with hypercapnia
[2018-10-31] MEDS ORDERED: CEFEPIME 1 GM/VIAL IV SCH (09:00)
[2018-10-31] MEDS ORDERED: AZITHROMYCIN IV 500 MG in NA CHLORIDE 0.9% 250 ML IVPB SCH (09:00)
[2018-10-31] MEDS: ENSURE ENLIVE 237 ML CAN PO SCH ×2 (09:00→21:00)
[2018-10-31] MEDS: POLYETHYL GLY 3350 17 GM/DOSE PO SCH (09:00)
[2018-10-31] MEDS: BUMETANIDE 1 MG TABLET PO SCH (09:07)
[2018-10-31] MEDS: CARVEDILOL 6.25 MG TAB PO SCH ×2 (09:07→22:13)
[2018-10-31] MEDS: RIVAROXABAN 15 MG TABLET PO SCH (09:07)
[2018-10-31] MEDS: DOCUSATE NA 100 MG CAP PO SCH ×2 (09:07→22:11)
[2018-10-31] MEDS: predniSONE 20 MG TAB PO SCH ×2 (09:08→22:13)
[2018-10-31] MEDS: SPIRONOLACTONE 25 MG TABLET PO SCH (09:08)
[2018-10-31] MEDS: ACETAZOLAMIDE 500 MG IV IV SCH ×2 (09:08→22:14)
[2018-10-31 09:22] LABS: Arterial Blood Carboxyhemoglob 1.4 % (0-1.5); Blood O2 Saturation 90.9 % (92-98.5)
[2018-10-31] MEDS: CEFEPIME/SWI 1gm 1 GM/10 ML SYR IV SCH ×2 (10:32→22:08)
--- NOTE | 2018-10-31 13:19 | PN ---
Mr. Thomas is doing better today. I think he actually has bilateral pneumonia, not heart failure. It seems that antibiotics are doing some good. He is not feeling short of breath. His O2 sats are low. 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 He has atrial fibrillation and takes rivaroxaban chronically. I think with his present therapy, he is improving. He is in sinus rhythm with sinus arrhythmia. We should continue the present therapy until he is well enough with his pneumonia to be discharged. LESLEY/DERRICK Voice ID: [id number] Report ID: [id number]
--- NOTE | 2018-10-31 19:01 | PN ---
Date of Progress Note: 10/30/2018 The patient still requires the use of BiPAP to maintain reasonable oxygenation. In view of this, we will do a high-resolution CT scan to see if there is an underlying pathology. HR/MODL Voice ID: [id number] Report ID: [id number]
--- NOTE | 2018-10-31 19:07 | PN ---
Date of Progress Note: 10/31/2018 CAT scan did show some interstitial thickening with alveolar calcification throughout. Discussion wi th Dr. Tellez as far as the actual diagnosis conclude that most likely thing is a pulmonary fibrosi s and the overall picture combined with COPD, which makes it a difficult prognosis. We will attempt to obtain the BiPAP for home use prior to being discharged. Cardiovascular status seems stable. The issues were discussed with the patient and his . HR/MODL Voice ID: [id number] Report ID: [id number]
[2018-10-31] MEDS: ATORVASTATIN 20 MG TAB PO SCH (22:13)
[2018-11-01] MEDS: IPRATROPIUM BROM 0.5MG/2.5ML NEB SCH ×4 (02:13→20:15)
[2018-11-01] MEDS: LEVOTHYROXINE SOD 0.1 MG TAB PO SCH (06:16)
--- NOTE | 2018-11-01 08:22 | P.PN ---
Subjective Date of Service: 11/01/18 Chief Complaint: Respiratory distress Patient's condition has improved significantly he is doing much better currently off BiPAP Review of Systems General: Weakness Respiratory: Shortness of Breath Physical Examination - Vital Signs Temperature: 97.7 F Blood Pressure: 107/57 Pulse: 66 Respirations: 18 Pulse Ox (%): 98 - Physical Exam General: Alert, In no apparent distress, Oriented x3 Respiratory: Clear to auscultation bilaterally Cardiovascular: No edema, Regular rate/rhythm Assessment & Plan - Problems (Diagnosis) (1) Acute and chronic respiratory failure Onset Date: 10/29/18 Current Visit: Yes Status: Acute Plan: Patient admitted with acute on chronic respiratory failure he is doing much better currently on steroids antibiotics CT scan shows bilateral airspace disease possibly an infection. He has chronic lower lobes bilateral loculated effusions labs are pending cultures are negative continue with diuretics for now will review his lab function blood cultures have been negative Qualifiers: Respiratory failure complication: hypoxia and hypercapnia Qualified Code(s) : J96.21 - Acute and chronic respiratory failure with hypoxia; J96.22 - Acute and chronic respiratory failure with hypercapnia
[2018-11-01] MEDS: ARFORMOTEROL TARTRATE 15 MCG/2 ML VIAL.NEB NEB SCH ×2 (08:46→20:15)
[2018-11-01 09:00] LABS: Potassium 4.4 mmol/L (3.5-5.1)
[2018-11-01] MEDS: ACETAZOLAMIDE 500 MG IV IV SCH ×2 (09:00→20:29)
[2018-11-01] MEDS: ENSURE ENLIVE 237 ML CAN PO SCH ×2 (09:00→20:40)
[2018-11-01] MEDS: BUMETANIDE 1 MG TABLET PO SCH (09:31)
[2018-11-01] MEDS: RIVAROXABAN 15 MG TABLET PO SCH (09:31)
[2018-11-01] MEDS: SPIRONOLACTONE 25 MG TABLET PO SCH (09:31)
[2018-11-01] MEDS: CARVEDILOL 6.25 MG TAB PO SCH ×2 (09:31→20:32)
[2018-11-01] MEDS: DOCUSATE NA 100 MG CAP PO SCH ×2 (09:31→20:35)
[2018-11-01] MEDS: POLYETHYL GLY 3350 17 GM/DOSE PO SCH (09:31)
[2018-11-01] MEDS: predniSONE 20 MG TAB PO SCH ×2 (09:32→20:32)
[2018-11-01] MEDS: CEFEPIME/SWI 1gm 1 GM/10 ML SYR IV SCH ×2 (09:32→20:32)
[2018-11-01] MEDS: ATORVASTATIN 20 MG TAB PO SCH (20:35)
[2018-11-02] MEDS: IPRATROPIUM BROM 0.5MG/2.5ML NEB SCH ×4 (02:00→19:19)
[2018-11-02] MEDS: LEVOTHYROXINE SOD 0.1 MG TAB PO SCH (05:39)
[2018-11-02] MEDS: ARFORMOTEROL TARTRATE 15 MCG/2 ML VIAL.NEB NEB SCH ×2 (07:11→19:19)
--- NOTE | 2018-11-02 08:21 | P.PN ---
Subjective Date of Service: 11/02/18 Chief Complaint: Respiratory distress Patient is improving shortness of breath has improved Review of Systems General: Weakness Respiratory: Shortness of Breath Physical Examination - Vital Signs Temperature: 97.3 F Blood Pressure: 122/58 Pulse: 74 Respirations: 20 Pulse Ox (%): 98 - Physical Exam General: Alert, Oriented x3 Neck: Supple Respiratory: Clear to auscultation bilaterally Cardiovascular: No edema, Regular rate/rhythm Assessment & Plan - Problems (Diagnosis) (1) Acute and chronic respiratory failure Onset Date: 10/29/18 Current Visit: Yes Status: Acute Plan: Patient has improved repeat chest x-ray continue with diuretics labs reviewed he is on steroids ABGs ordered he may qualify for an outpatient BiPAP due to his underlying severe COPD currently no evidence of sepsis vital signs reviewed. Currently has stable chronic resp failure. and will benefit from NIV to prevent recurrent hosiptal admissions Qualifiers: Respiratory failure complication: hypoxia and hypercapnia Qualified Code(s) : J96.21 - Acute and chronic respiratory failure with hypoxia; J96.22 - Acute and chronic respiratory failure with hypercapnia
[2018-11-02] MEDS: SPIRONOLACTONE 25 MG TABLET PO SCH (08:45)
[2018-11-02] MEDS: BUMETANIDE 1 MG TABLET PO SCH (08:46)
[2018-11-02] MEDS: POLYETHYL GLY 3350 17 GM/DOSE PO SCH (08:46)
[2018-11-02] MEDS: CEFEPIME/SWI 1gm 1 GM/10 ML SYR IV SCH ×2 (08:47→22:00)
[2018-11-02] MEDS: predniSONE 20 MG TAB PO SCH ×2 (08:47→21:59)
[2018-11-02] MEDS: DOCUSATE NA 100 MG CAP PO SCH ×2 (08:47→21:59)
[2018-11-02] MEDS: RIVAROXABAN 15 MG TABLET PO SCH (08:47)
[2018-11-02] MEDS: ACETAZOLAMIDE 500 MG IV IV SCH ×2 (08:48→22:00)
[2018-11-02] MEDS: CARVEDILOL 6.25 MG TAB PO SCH ×2 (08:49→21:59)
[2018-11-02] MEDS: ENSURE ENLIVE 237 ML CAN PO SCH ×2 (08:49→22:00)
[2018-11-02 09:16] LABS: Arterial Blood Carboxyhemoglob 1.4 % (0-1.5); Blood Gas Oxyhemoglobin 86.1 % (94-97); Blood O2 Saturation 87.9 % (92-98.5)
--- NOTE | 2018-11-02 09:52 | RAD REPORT ---
EXAM DESCRIPTION: Jatinder Single View11/02/2018 8:44 am CLINICAL HISTORY: Shortness of breath COMPARISON: October 30 FINDINGS: No significant change in the bilateral pulmonary opacities, bilateral pleural effusions an d cardiomegaly IMPRESSION: No significant change since prior exam
[2018-11-02] MEDS ORDERED: BISACODYL E.C. 5 MG TAB PO PRN (15:22)
--- NOTE | 2018-11-02 21:13 | PN ---
Date of Progress Note: 11/01/2018 The patient states he feels somewhat better today and his O2 sats have improved somewhat. However, i t did drop rather quickly with any significant movement. Discussion was had he has the respirator at home and this will be evaluated and depending on the availability, time of discharge can be more fransisco ropriately set. HR/MODL Voice ID: [id number] Report ID: [id number]
--- NOTE | 2018-11-02 21:19 | PN ---
Date of Progress Note: 11/02/2018 Basically status quo. His bicarb, which had improved, is basically the same. CO2 retention has incr eased somewhat. Still has marked desaturation, with minimal movement. Progress is being made in obt aining the home management supervisor for breathing. However, due to the holidays, it probably will be extended in a couple of extra days. In the meantime, we will continue on his antibiotics and steroids seemed to be helping somewhat. HR/MODL Voice ID: [id number] Report ID: [id number]
[2018-11-02] MEDS: ATORVASTATIN 20 MG TAB PO SCH (21:59)
[2018-11-03] MEDS: IPRATROPIUM BROM 0.5MG/2.5ML NEB SCH ×4 (01:25→19:43)
[2018-11-03] MEDS: LEVOTHYROXINE SOD 0.1 MG TAB PO SCH (05:56)
[2018-11-03] MEDS: ARFORMOTEROL TARTRATE 15 MCG/2 ML VIAL.NEB NEB SCH ×2 (07:45→19:43)
[2018-11-03] MEDS: ENSURE ENLIVE 237 ML CAN PO SCH ×2 (09:00→21:13)
--- NOTE | 2018-11-03 09:07 | RAD REPORT ---
EXAM DESCRIPTION: Jatinder Single View11/03/2018 6:53 am CLINICAL HISTORY: Shortness of breath COMPARISON: November 02 FINDINGS: No significant change in bilateral pulmonary opacities, bilateral pleural effusions and c ardiomegaly IMPRESSION: No significant change since prior exam
[2018-11-03] MEDS: BUMETANIDE 1 MG TABLET PO SCH (09:41)
[2018-11-03] MEDS: DOCUSATE NA 100 MG CAP PO SCH ×2 (09:43→21:12)
[2018-11-03] MEDS: SPIRONOLACTONE 25 MG TABLET PO SCH (09:43)
[2018-11-03] MEDS: CARVEDILOL 6.25 MG TAB PO SCH ×2 (09:43→21:12)
[2018-11-03] MEDS: ACETAZOLAMIDE 500 MG IV IV SCH (09:44)
[2018-11-03] MEDS: predniSONE 20 MG TAB PO SCH (09:44)
[2018-11-03] MEDS: POLYETHYL GLY 3350 17 GM/DOSE PO SCH (09:46)
[2018-11-03] MEDS: RIVAROXABAN 15 MG TABLET PO SCH (09:47)
[2018-11-03] MEDS: CEFEPIME/SWI 1gm 1 GM/10 ML SYR IV SCH (09:50)
--- NOTE | 2018-11-03 10:55 | P.PN ---
Subjective Date of Service: 11/03/18 Chief Complaint: Respiratory failure Patient is slowly progressing no change from yesterday Review of Systems General: Weakness Respiratory: Shortness of Breath Physical Examination - Vital Signs Temperature: 97.1 F Blood Pressure: 119/59 Pulse: 66 Respirations: 18 Pulse Ox (%): 99 - Physical Exam General: Alert, In no apparent distress Respiratory: Clear to auscultation bilaterally, Diminished Cardiovascular: No edema, Regular rate/rhythm - Studies Microbiology Data (last 24 hrs): 10/28/18 16:43 Blood - Blood Aerobic Blood Culture - Final No growth in 5 days. 10/28/18 16:43 Blood - Blood Anaerobic Blood Culture - Final No growth in 5 days. 10/28/18 16:20 Blood - Blood Aerobic Blood Culture - Final No growth in 5 days. 10/28/18 16:20 Blood - Blood Anaerobic Blood Culture - Final No growth in 5 days. Assessment & Plan - Problems (Diagnosis) (1) Acute and chronic respiratory failure Onset Date: 10/29/18 Current Visit: Yes Status: Acute Plan: Patient now is stable respiratory failure his hypercapnic repeat blood gases still did show significant hypercapnia he will benefit from a BiPAP to prevent recurrent hospitalizations patient's cultures all negative patient has chronic changes in his lower lobes with underlying COPD labs and vital signs all reviewed reduce prednisone to 10 mg twice a day Dc cefepime change to p.o. levofloxacin Dc day spironolactone continue with p.o. Diamox and Bumex discharge when patient has a BiPAP he has oxygen at home continue with levofloxacin and low-dose prednisone Qualifiers: Respiratory failure complication: hypoxia and hypercapnia Qualified Code(s) : J96.21 - Acute and chronic respiratory failure with hypoxia; J96.22 - Acute and chronic respiratory failure with hypercapnia
[2018-11-03] MEDS: levoFLOXacin 500 MG TAB PO SCH (13:51)
--- NOTE | 2018-11-03 17:35 | PN ---
Date of Progress Note: 11/03/2018 Subjective: The patient basically status quo. An IV situation is being worked on, until that time, he will probably be remain in the hospital. HR/MODL Voice ID: [id number] Report ID: [id number]
[2018-11-03] MEDS: acetaZOLAMIDE 250 MG TAB PO SCH (21:12)
[2018-11-03] MEDS: predniSONE 10 MG TAB PO SCH (21:12)
[2018-11-03] MEDS: ATORVASTATIN 20 MG TAB PO SCH (21:13)
[2018-11-04] MEDS: IPRATROPIUM BROM 0.5MG/2.5ML NEB SCH ×4 (01:56→19:10)
[2018-11-04] MEDS: ALBUTEROL 2.5 MG/3 ML NEB SOL NEB PRN (01:57)
[2018-11-04] MEDS: LEVOTHYROXINE SOD 0.1 MG TAB PO SCH (05:30)
[2018-11-04] MEDS: ARFORMOTEROL TARTRATE 15 MCG/2 ML VIAL.NEB NEB SCH ×2 (07:48→19:10)
[2018-11-04] MEDS: POLYETHYL GLY 3350 17 GM/DOSE PO SCH ×2 (09:00→09:26)
[2018-11-04] MEDS: BUMETANIDE 1 MG TABLET PO SCH (09:18)
[2018-11-04] MEDS: RIVAROXABAN 15 MG TABLET PO SCH (09:20)
[2018-11-04] MEDS: predniSONE 10 MG TAB PO SCH ×2 (09:20→21:20)
[2018-11-04] MEDS: levoFLOXacin 500 MG TAB PO SCH (09:20)
[2018-11-04] MEDS: CARVEDILOL 6.25 MG TAB PO SCH ×2 (09:20→21:20)
[2018-11-04] MEDS: DOCUSATE NA 100 MG CAP PO SCH ×2 (09:20→21:00)
[2018-11-04] MEDS: ENSURE ENLIVE 237 ML CAN PO SCH ×2 (09:21→21:21)
[2018-11-04] MEDS: acetaZOLAMIDE 250 MG TAB PO SCH ×2 (09:25→21:20)
--- NOTE | 2018-11-04 14:38 | P.PN ---
Subjective Date of Service: 11/04/18 Chief Complaint: Respiratory failure Patient seen and examined at bedside with RN. Chart reviewed. Case discussed with pulmonology at this time. Patient doing well overall. Currently awaiting BiPAP setup at home Review of Systems 10-point ROS is otherwise unremarkable Physical Examination - Vital Signs Temperature: 97.2 F Blood Pressure: 115/55 Pulse: 65 Respirations: 24 Pulse Ox (%): 96 - Physical Exam General: Alert, In no apparent distress HEENT: Atraumatic, PERRLA, EOMI Neck: Supple, JVD not distended Respiratory: Clear to auscultation bilaterally, Normal air movement Cardiovascular: Regular rate/rhythm, Normal S1 S2 Gastrointestinal: Normal bowel sounds, No tenderness Musculoskeletal: No tenderness Integumentary: No rashes Neurological: Normal speech, Normal tone, Normal affect Lymphatics: No axilla or inguinal lymphadenopathy - Studies Medications List Reviewed: Yes Assessment And Plan - Current Problems (Diagnosis) (1) Acute and chronic respiratory failure Onset Date: 10/29/18 Current Visit: Yes Status: Acute Qualifiers: Respiratory failure complication: hypoxia and hypercapnia Qualified Code(s) : J96.21 - Acute and chronic respiratory failure with hypoxia; J96.22 - Acute and chronic respiratory failure with hypercapnia (2) COPD with acute exacerbation Onset Date: 10/29/18 Current Visit: Yes Status: Acute (3) Atrial fibrillation Onset Date: 10/29/18 Current Visit: Yes Status: Chronic Qualifiers: Atrial fibrillation type: chronic Qualified Code(s): I48.2 - Chronic atrial fibrillation (4) CHF (congestive heart failure) Onset Date: 05/21/18 Current Visit: No Status: Chronic Qualifiers: Heart failure type: unspecified Heart failure chronicity: chronic Qualified Code(s): I50.9 - Heart failure, unspecified - Plan Patient is currently awaiting noninvasive positive pressure ventilator to be arranged to go home with. Case management has been consulted and working on getting the patient instrument for safe discharge home. Case management regarding further recommendations at this time. Discharge Plan: Home Plan to discharge in: 48 Hours - Code Status/Comfort Care Code Status Assessed: Yes Critical Care: No
[2018-11-04] MEDS: ATORVASTATIN 20 MG TAB PO SCH (21:20)
[2018-11-05] MEDS: IPRATROPIUM BROM 0.5MG/2.5ML NEB SCH ×4 (01:30→20:00)
[2018-11-05] MEDS: LEVOTHYROXINE SOD 0.1 MG TAB PO SCH (06:04)
[2018-11-05] MEDS: ARFORMOTEROL TARTRATE 15 MCG/2 ML VIAL.NEB NEB SCH ×2 (07:43→20:00)
[2018-11-05] MEDS: acetaZOLAMIDE 250 MG TAB PO SCH ×2 (08:28→21:07)
[2018-11-05] MEDS: levoFLOXacin 500 MG TAB PO SCH (08:28)
[2018-11-05] MEDS: predniSONE 10 MG TAB PO SCH ×2 (08:30→21:07)
[2018-11-05] MEDS: CARVEDILOL 6.25 MG TAB PO SCH ×2 (08:30→21:07)
[2018-11-05] MEDS: POLYETHYL GLY 3350 17 GM/DOSE PO SCH (08:30)
[2018-11-05] MEDS: DOCUSATE NA 100 MG CAP PO SCH ×2 (08:30→21:00)
[2018-11-05] MEDS: BUMETANIDE 1 MG TABLET PO SCH (08:31)
[2018-11-05] MEDS: ENSURE ENLIVE 237 ML CAN PO SCH ×2 (09:00→21:06)
[2018-11-05] MEDS: RIVAROXABAN 15 MG TABLET PO SCH (09:49)
--- NOTE | 2018-11-05 11:15 | P.PN ---
Subjective Date of Service: 11/05/18 Chief Complaint: Respiratory failure Patient seen and examined at bedside with RN. Chart reviewed. Case discussed with pulmonology at this time. Patient doing well overall. Currently awaiting BiPAP setup at home Review of Systems 10-point ROS is otherwise unremarkable Physical Examination - Vital Signs Temperature: 97.1 F Blood Pressure: 128/59 Pulse: 81 Respirations: 28 Pulse Ox (%): 92 - Physical Exam General: Alert, In no apparent distress HEENT: Atraumatic, PERRLA, EOMI Neck: Supple, JVD not distended Respiratory: Normal air movement, Expiratory wheezes, Inspiratory wheezes Cardiovascular: Regular rate/rhythm, Normal S1 S2 Gastrointestinal: Normal bowel sounds, No tenderness Musculoskeletal: No tenderness Integumentary: No rashes Neurological: Normal speech, Normal tone, Normal affect Lymphatics: No axilla or inguinal lymphadenopathy - Studies Medications List Reviewed: Yes Assessment And Plan - Current Problems (Diagnosis) (1) Acute and chronic respiratory failure Onset Date: 10/29/18 Current Visit: Yes Status: Acute Plan: Acute on Chronic RF 2.2 to Hypercapnia -BIPAP , Duonebs, Steroids and oxygen -CM arranging for BIPAP to go home with. Qualifiers: Respiratory failure complication: hypoxia and hypercapnia Qualified Code(s) : J96.21 - Acute and chronic respiratory failure with hypoxia; J96.22 - Acute and chronic respiratory failure with hypercapnia (2) COPD with acute exacerbation Onset Date: 10/29/18 Current Visit: Yes Status: Acute (3) Atrial fibrillation Onset Date: 10/29/18 Current Visit: Yes Status: Chronic Qualifiers: Atrial fibrillation type: chronic Qualified Code(s): I48.2 - Chronic atrial fibrillation (4) CHF (congestive heart failure) Onset Date: 05/21/18 Current Visit: No Status: Chronic Qualifiers: Heart failure type: unspecified Heart failure chronicity: chronic Qualified Code(s): I50.9 - Heart failure, unspecified - Plan Patient is currently awaiting noninvasive positive pressure ventilator to be arranged to go home. Case management has been consulted and working on getting the patient instrument for safe discharge home. F/U Case management regarding further recommendations at this time. Discharge Plan: Home Plan to discharge in: 48 Hours - Code Status/Comfort Care Code Status Assessed: Yes Critical Care: No
[2018-11-05] MEDS: ATORVASTATIN 20 MG TAB PO SCH (21:07)
[2018-11-06] MEDS: IPRATROPIUM BROM 0.5MG/2.5ML NEB SCH ×4 (02:20→20:05)
[2018-11-06] MEDS: LEVOTHYROXINE SOD 0.1 MG TAB PO SCH (06:28)
[2018-11-06] MEDS: ARFORMOTEROL TARTRATE 15 MCG/2 ML VIAL.NEB NEB SCH ×2 (07:14→20:05)
[2018-11-06] MEDS: BUMETANIDE 1 MG TABLET PO SCH (08:58)
[2018-11-06] MEDS: levoFLOXacin 500 MG TAB PO SCH (08:58)
[2018-11-06] MEDS: acetaZOLAMIDE 250 MG TAB PO SCH (08:59)
[2018-11-06] MEDS: CARVEDILOL 6.25 MG TAB PO SCH ×2 (08:59→20:10)
[2018-11-06] MEDS: DOCUSATE NA 100 MG CAP PO SCH ×2 (08:59→20:10)
[2018-11-06] MEDS: RIVAROXABAN 15 MG TABLET PO SCH (09:00)
[2018-11-06] MEDS: POLYETHYL GLY 3350 17 GM/DOSE PO SCH (09:00)
[2018-11-06] MEDS: predniSONE 10 MG TAB PO SCH ×2 (09:00→20:10)
[2018-11-06] MEDS: ENSURE ENLIVE 237 ML CAN PO SCH ×2 (09:00→20:13)
--- NOTE | 2018-11-06 11:01 | P.PN ---
Subjective Date of Service: 11/06/18 Chief Complaint: Respiratory failure Patient's condition is stable no change she still short of breath awaiting a noninvasive ventilator Review of Systems Unremarkable General: Weakness Respiratory: Shortness of Breath Physical Examination - Vital Signs Temperature: 97.8 F Blood Pressure: 109/56 Pulse: 87 Respirations: 18 Pulse Ox (%): 95 - Physical Exam General: Alert, Oriented x3, Mild distress Neck: Supple Respiratory: Clear to auscultation bilaterally, Diminished Cardiovascular: No edema, Regular rate/rhythm - Studies Medications List Reviewed: Yes Assessment & Plan - Problems (Diagnosis) (1) Respiratory failure Current Visit: Yes Status: Acute Plan: Patient now has chronic stable respiratory failure he is hypercapnic hypoxic and will benefit from a noninvasive ventilator to prevent hospital admissions labs all reviewed no evidence of sepsis Dc antibiotics vital signs stable reduce Diamox to 125 daily continue with bumetanide
--- NOTE | 2018-11-06 12:07 | P.PN ---
Subjective Date of Service: 11/06/18 Chief Complaint: Respiratory failure Patient seen and examined at bedside with RN. Chart reviewed. Case discussed with pulmonology at this time. Patient doing well overall. Currently awaiting BiPAP setup at home Review of Systems 10-point ROS is otherwise unremarkable Physical Examination - Vital Signs Temperature: 97.8 F Blood Pressure: 109/56 Pulse: 87 Respirations: 18 Pulse Ox (%): 95 - Physical Exam General: Alert, In no apparent distress HEENT: Atraumatic, PERRLA, EOMI Neck: Supple, JVD not distended Respiratory: Clear to auscultation bilaterally, Normal air movement Cardiovascular: Regular rate/rhythm, Normal S1 S2 Gastrointestinal: Normal bowel sounds, No tenderness Musculoskeletal: No tenderness Integumentary: No rashes Neurological: Normal speech, Normal tone, Normal affect Lymphatics: No axilla or inguinal lymphadenopathy - Studies Medications List Reviewed: Yes Assessment And Plan - Current Problems (Diagnosis) (1) Acute and chronic respiratory failure Onset Date: 10/29/18 Current Visit: Yes Status: Acute Plan: Acute on Chronic RF 2.2 to Hypercapnia -BIPAP , Duonebs, Steroids and oxygen -CM arranging for BIPAP to go home with. Qualifiers: Respiratory failure complication: hypoxia and hypercapnia Qualified Code(s) : J96.21 - Acute and chronic respiratory failure with hypoxia; J96.22 - Acute and chronic respiratory failure with hypercapnia (2) COPD with acute exacerbation Onset Date: 10/29/18 Current Visit: Yes Status: Acute (3) Atrial fibrillation Onset Date: 10/29/18 Current Visit: Yes Status: Chronic Qualifiers: Atrial fibrillation type: chronic Qualified Code(s): I48.2 - Chronic atrial fibrillation (4) CHF (congestive heart failure) Onset Date: 05/21/18 Current Visit: No Status: Chronic Qualifiers: Heart failure type: unspecified Heart failure chronicity: chronic Qualified Code(s): I50.9 - Heart failure, unspecified - Plan Patient is currently awaiting noninvasive positive pressure ventilator to be arranged to go home. Case management has been consulted and working on getting the patient instrument for safe discharge home. F/U Case management regarding further recommendations at this time. Discharge Plan: Home Plan to discharge in: 48 Hours - Code Status/Comfort Care Code Status Assessed: Yes Critical Care: No
[2018-11-06] MEDS: ATORVASTATIN 20 MG TAB PO SCH (20:10)
[2018-11-07] MEDS: IPRATROPIUM BROM 0.5MG/2.5ML NEB SCH ×4 (02:00→19:15)
[2018-11-07] MEDS: LEVOTHYROXINE SOD 0.1 MG TAB PO SCH (05:38)
[2018-11-07] MEDS: ARFORMOTEROL TARTRATE 15 MCG/2 ML VIAL.NEB NEB SCH ×2 (07:50→19:15)
[2018-11-07] MEDS: predniSONE 10 MG TAB PO SCH ×2 (08:46→21:51)
[2018-11-07] MEDS: RIVAROXABAN 15 MG TABLET PO SCH (08:46)
[2018-11-07] MEDS: CARVEDILOL 6.25 MG TAB PO SCH ×2 (08:46→21:51)
[2018-11-07] MEDS: DOCUSATE NA 100 MG CAP PO SCH ×2 (08:46→21:51)
[2018-11-07] MEDS: POLYETHYL GLY 3350 17 GM/DOSE PO SCH (08:47)
[2018-11-07] MEDS: ENSURE ENLIVE 237 ML CAN PO SCH ×2 (08:47→21:00)
[2018-11-07] MEDS: BUMETANIDE 1 MG TABLET PO SCH (08:52)
[2018-11-07] MEDS: acetaZOLAMIDE 250 MG TAB PO SCH (08:53)
--- NOTE | 2018-11-07 15:12 | P.PN ---
Subjective Date of Service: 11/07/18 Primary Care Provider: Dr. Nino(Covering for him) Chief Complaint: Respiratory failure Subjective: Doing well Physical Examination - Vital Signs Temperature: 98.1 F Blood Pressure: 107/50 Pulse: 98 Respirations: 18 Pulse Ox (%): 91 - Physical Exam General: Alert, In no apparent distress, Oriented x3, Cooperative HEENT: Atraumatic Neck: Supple Respiratory: Expiratory wheezes, Inspiratory wheezes Cardiovascular: Normal pulses, Regular rate/rhythm Gastrointestinal: Normal bowel sounds, Soft and benign, Non-distended, No masses , No rebound, No guarding Musculoskeletal: No erythema, No tenderness, No warmth Integumentary: No erythema, No warmth, No cyanosis Neurological: Normal speech, Normal strength at 5/5 x4 extr, Normal tone, Normal affect - Studies Medications List Reviewed: Yes Assessment & Plan Discharge Plan: Home Plan to discharge in: 24 Hours Physician Review Additional Text: Impression: Acute on chronic respiratory failure with hypercapnia secondary to COPD exacerbation complicated with advanced COPD oxygen and steroid dependent Atrial fibrillation on chronic anti coagulation therapy Chronic diastolic CHF Hypothyroidism Hypertension Plan: Acute on chronic respiratory failure with hypercapnia secondary to COPD exacerbation complicated with advanced COPD oxygen and steroid dependent: Continue with current medications at this time. Continue with COPD medication. Will maintain sats above 90%. Patient waiting noninvasive ventilator to be arranged for home. Once this is set up the patient can be discharged. Anticipate discharge in the next 2 days. Atrial fibrillation on chronic anti coagulation therapy: Continue with medication including anti coagulation therapy Chronic diastolic CHF: Continue with fluid restriction and diuretic therapy pre Hypothyroidism: Continue with medication Hypertension: Continue with medication. Will monitor and adjust appropriately. Dr. Nino will take over care. Time Spent Managing Pts Care (In Minutes): 55
[2018-11-07] MEDS: ATORVASTATIN 20 MG TAB PO SCH (21:51)
[2018-11-08] MEDS: IPRATROPIUM BROM 0.5MG/2.5ML NEB SCH ×4 (01:30→19:18)
[2018-11-08] MEDS: ALBUTEROL 2.5 MG/3 ML NEB SOL NEB PRN (01:30)
[2018-11-08] MEDS: ARFORMOTEROL TARTRATE 15 MCG/2 ML VIAL.NEB NEB SCH ×2 (08:34→19:18)
[2018-11-08] MEDS: LEVOTHYROXINE SOD 0.1 MG TAB PO SCH (08:42)
[2018-11-08] MEDS: BUMETANIDE 1 MG TABLET PO SCH (08:48)
[2018-11-08] MEDS: CARVEDILOL 6.25 MG TAB PO SCH ×2 (08:49→21:33)
[2018-11-08] MEDS: DOCUSATE NA 100 MG CAP PO SCH ×2 (08:49→20:35)
[2018-11-08] MEDS: RIVAROXABAN 15 MG TABLET PO SCH (08:50)
[2018-11-08] MEDS: predniSONE 10 MG TAB PO SCH ×2 (08:50→20:35)
[2018-11-08] MEDS: acetaZOLAMIDE 250 MG TAB PO SCH (08:50)
[2018-11-08] MEDS: POLYETHYL GLY 3350 17 GM/DOSE PO SCH (08:51)
[2018-11-08] MEDS: ENSURE ENLIVE 237 ML CAN PO SCH ×2 (08:51→20:41)
[2018-11-08 17:21] LABS: Arterial Blood Carboxyhemoglob 1.4 % (0-1.5); Blood O2 Saturation 87.8 % (92-98.5)
[2018-11-08] MEDS: ATORVASTATIN 20 MG TAB PO SCH (20:35)
--- NOTE | 2018-11-09 00:01 | PN ---
Date of Progress Note: 11/08/2018 Status quo, patient is still awaiting ventilator. We will discuss case further with Social Service a jourdan Tellez in a.[employer] HR/MODL Voice ID: [id number] Report ID: [id number]
[2018-11-09] MEDS: IPRATROPIUM BROM 0.5MG/2.5ML NEB SCH ×4 (01:15→20:55)
[2018-11-09] MEDS: LEVOTHYROXINE SOD 0.1 MG TAB PO SCH (05:46)
[2018-11-09] MEDS: ARFORMOTEROL TARTRATE 15 MCG/2 ML VIAL.NEB NEB SCH ×2 (07:45→20:55)
[2018-11-09] MEDS: RIVAROXABAN 15 MG TABLET PO SCH (09:49)
[2018-11-09] MEDS: BUMETANIDE 1 MG TABLET PO SCH (09:49)
[2018-11-09] MEDS: POLYETHYL GLY 3350 17 GM/DOSE PO SCH (09:49)
[2018-11-09] MEDS: predniSONE 10 MG TAB PO SCH ×2 (09:50→21:55)
[2018-11-09] MEDS: DOCUSATE NA 100 MG CAP PO SCH ×2 (09:50→21:54)
[2018-11-09] MEDS: CARVEDILOL 6.25 MG TAB PO SCH ×2 (09:50→21:54)
[2018-11-09] MEDS: acetaZOLAMIDE 250 MG TAB PO SCH (09:51)
[2018-11-09] MEDS: ENSURE ENLIVE 237 ML CAN PO SCH ×2 (09:51→21:59)
--- NOTE | 2018-11-09 10:01 | P.PN ---
Subjective Date of Service: 11/09/18 Primary Care Provider: Dr. Nino(Covering for him) Chief Complaint: COPD Patient has hypoxic hypercapnic respiratory failure which is now a chronic and stable due to his underlying COPD is doing better condition stable awaiting for a BiPAP setup Review of Systems General: Weakness Respiratory: Shortness of Breath Physical Examination - Vital Signs Temperature: 96.6 F Blood Pressure: 141/80 Pulse: 77 Respirations: 20 Pulse Ox (%): 89 - Physical Exam General: Alert, Oriented x3 HEENT: Atraumatic Neck: Supple Respiratory: Clear to auscultation bilaterally, Diminished - Studies Medications List Reviewed: Yes Assessment & Plan - Problems (Diagnosis) (1) Respiratory failure Current Visit: Yes Status: Acute Plan: Stable hypoxic hypercapnic respiratory failure will qualify for a BiPAP Qualifiers: Chronicity: acute on chronic Respiratory failure complication: hypoxia and hypercapnia Qualified Code(s): J96.21 - Acute and chronic respiratory failure with hypoxia; J96.22 - Acute and chronic respiratory failure with hypercapnia (2) COPD (chronic obstructive pulmonary disease) Onset Date: 05/21/18 Current Visit: No Status: Acute Plan: Patient has severe COPD and will qualify for noninvasive BiPAP. Patient has baseline hypercapnia significant desaturation on oxygen off BiPAP at night Physician Review Additional Text: Impression: Acute on chronic respiratory failure with hypercapnia secondary to COPD exacerbation complicated with advanced COPD oxygen and steroid dependent Atrial fibrillation on chronic anti coagulation therapy Chronic diastolic CHF Hypothyroidism Hypertension Plan: Acute on chronic respiratory failure with hypercapnia secondary to COPD exacerbation complicated with advanced COPD oxygen and steroid dependent: Continue with current medications at this time. Continue with COPD medication. Will maintain sats above 90%. Patient waiting noninvasive ventilator to be arranged for home. Once this is set up the patient can be discharged. Anticipate discharge in the next 2 days. Atrial fibrillation on chronic anti coagulation therapy: Continue with medication including anti coagulation therapy Chronic diastolic CHF: Continue with fluid restriction and diuretic therapy pre Hypothyroidism: Continue with medication Hypertension: Continue with medication. Will monitor and adjust appropriately. Dr. Nino will take over care.
[2018-11-09] MEDS ORDERED: ONDANSETRON 4 MG/2 ML VIAL IV PRN (15:00)
--- NOTE | 2018-11-09 19:29 | PN ---
Date of Progress Note: 11/09/2018 The patient is basically status quo. Apparently was turned down for the home noninvasive ventilator. Therefore, the BiPAP will be evaluated and hopefully be approved, so the patient can return home. HR/MODL Voice ID: [id number] Report ID: [id number]
[2018-11-09] MEDS: ATORVASTATIN 20 MG TAB PO SCH (21:54)
[2018-11-10] MEDS: IPRATROPIUM BROM 0.5MG/2.5ML NEB SCH ×4 (02:45→15:16)
[2018-11-10] MEDS: LEVOTHYROXINE SOD 0.1 MG TAB PO SCH (05:32)
[2018-11-10 06:09] LABS: Potassium 3.7 mmol/L (3.5-5.1); Prealbumin 35.4 mg/dL (20-40)
[2018-11-10] MEDS: ARFORMOTEROL TARTRATE 15 MCG/2 ML VIAL.NEB NEB SCH ×2 (08:15→10:10)
[2018-11-10] MEDS: RIVAROXABAN 15 MG TABLET PO SCH (10:15)
[2018-11-10] MEDS: acetaZOLAMIDE 250 MG TAB PO SCH (10:16)
[2018-11-10] MEDS: BUMETANIDE 1 MG TABLET PO SCH (10:16)
[2018-11-10] MEDS: CARVEDILOL 6.25 MG TAB PO SCH (10:17)
[2018-11-10] MEDS: POLYETHYL GLY 3350 17 GM/DOSE PO SCH (10:17)
[2018-11-10] MEDS: DOCUSATE NA 100 MG CAP PO SCH (10:17)
[2018-11-10] MEDS: predniSONE 10 MG TAB PO SCH (10:17)
[2018-11-10] MEDS: ENSURE ENLIVE 237 ML CAN PO SCH (10:18)
[2018-11-10 17:15] VITALS: BP 143/80; TEMP 97.5
[2018-11-10 19:38] VITALS: O2SAT 91
== END 2018-11-10 17:54 | disposition home health service (06) | DRG 190 ==
LOC: ER 16:02 → ERHOLD 17:15 → 2ND 18:19 → 4TH 11-05 16:50
PROVIDERS: ADMIT Family Medicine; ATTEND Family Medicine
PROC: 5A09557 Assistance with Respiratory Ventilation, Greater than 96 Consecutive Hours, Continuous Positive Airway Pressure (ICD-10-PCS; principal; 2018-10-28)
DX: J44.1 Chronic obstructive pulmonary disease with (acute) exacerbation (principal); J96.21 Acute and chronic respiratory failure with hypoxia; J96.22 Acute and chronic respiratory failure with hypercapnia; I50.32 Chronic diastolic (congestive) heart failure; E44.0 Moderate protein-calorie malnutrition; J90 Pleural effusion, not elsewhere classified; Z87.891 Personal history of nicotine dependence; I48.2 Chronic atrial fibrillation; Z79.01 Long term (current) use of anticoagulants; I11.0 Hypertensive heart disease with heart failure; E78.5 Hyperlipidemia, unspecified; Z85.53 Personal history of malignant neoplasm of renal pelvis; E83.41 Hypermagnesemia; E88.09 Other disorders of plasma-protein metabolism, not elsewhere classified; Z99.81 Dependence on supplemental oxygen; R06.82 Tachypnea, not elsewhere classified; E03.9 Hypothyroidism, unspecified; I25.2 Old myocardial infarction; Z90.5 Acquired absence of kidney; Z79.51 Long term (current) use of inhaled steroids
CPT/HCPCS: 36415; 71045; 71250; 80048; 80076; 82550; 82805; 83605; 83690; 83735; 83880; 84134; 84145; 84443; 84484; 85025; 85610; 85730; 87040; 87804; 93005; 93306; 94640; 94660; 94760; 97161; 99285; J0456; J0692; J1120; J1940; J2543; J2920; J2930; J7512; J7605

== ENCOUNTER 2018-11-23 10:11 | Inpatient (IN) | payer OTHER ==
--- OUTSIDE RECORDS SUMMARY | 2018-11-23 10:20 | XMS REPORT | Clinical Summary ---
:1940 Author Organization [facility] Address [address] [place] [address] Care Team Providers Name Role Phone Nikolay [...] Not on file Results Not on fileafter 11/22/2017 Insurance Payer Benefit Plan / Subscriber ID Type Phone Address Group [employer] - A[employer]NA MEDICARE xxxxxxxx [facility] Contracted [phone] [address] MEDICARE MGD HMO POS 365535 [place] [address] Advance Directives For more information, please contact:[address] [phone] Code Status Date Activated Date Inactivated Comments Full Code 08/23/2016 11:09 AM 08/25/2016 6:09 PM This code status was determined by: Patient DNR 08/13/2016 1:33 AM 08/23/2016 11:09 AM
--- OUTSIDE RECORDS SUMMARY | 2018-11-23 10:21 | XMS REPORT ---
:1940 [facility] Address [address] [place] [address] [address]. Anaya [address] [place] [address] Care Team Providers Name Role Phone ZEHRA TIMMONS Unavailable Unavailable Problems This patient has no known problems. Allergies, Adverse Reactions, Alerts This patient has no known allergies or adverse reactions. Medications This patient has no known medications. Results Test Description Test Time Test Comments Text Results Atomic Results Result Comments PT/APTT 2017-02-24 10:16:00 Test Item Value Reference Range Comments PROTIME (BEAKER) (test dkvz=441) 14.1 seconds 11.7-14.7 INR (BEAKER) (test zlyp=515) 1.1 <=5.9 PARTIAL THROMBOPLASTIN TIME (BEAKER) (test dhnv=630) 30.0 seconds 22.5-36.0 RECOMMENDED COUMADIN/WARFARIN INR THERAPY RANGESSTANDARD DOSE: 2.0 - 3.0 Includes: PROPHYLAXIS forvenous thrombosis, systemic embolization; TREATMENT for venous thrombosis and/or pulmonary embolus.HIGH RISK: Target INR is 2.5-3.5 for patients with mechanical heart valves.PLATELET [id number] 10:14:00 Test Item Value Reference Range Comments PLATELET COUNT (BEAKER) (test wnio=747) 314 K/CU MM 150-430
[2018-11-23 10:43] LABS: Protime INR 1.81
[2018-11-23 10:44] LABS: RBC Red Blood Cell Count 4.98 M/uL (4.33-5.43)
[2018-11-23 10:45] LABS: Absolute Lymphocytes (CBC) 0.8 K/uL (0.7-4.9); Absolute Monocytes 0.5 K/uL (0.1-1.3); Absolute Neutrophil 4.5 K/uL (1.8-8.0); Basophils % 0.5 % (0-1.3); Hematocrit 43.7 % (39.6-49.0); Lymphocytes % 13.4 % (15.3-44.8); MPV 8.1 fL (7.6-11.3)
--- NOTE | 2018-11-23 10:49 | RAD REPORT ---
EXAM DESCRIPTION: RAD - Chest Single View - 11/23/2018 10:32 am CLINICAL HISTORY: SOB Chest pain. COMPARISON: Chest Single View dated 11/03/2018; Chest Single View dated 11/02/2018; Chest Single Vie w dated 10/30/2018; Chest Single View dated 10/28/2018 FINDINGS: Portable technique limits examination quality. There has been mild worsening in bilateral pulmonary opacities and pleural effusion since the compara tive study, likely indicating mild worsening pulmonary edema or pneumonia. The heart is significantly prominent in size. Right-sided port catheter tip in the SVC. IMPRESSION: Mild to moderate worsening in lung aeration since comparative study.
[2018-11-23] MEDS ORDERED: MAGNESIUM SULFATE 1 gm IVPB 1 GM/100 ML BAG IV ONE (10:51)
[2018-11-23] MEDS ORDERED: ALBUTEROL 2.5 MG/3 ML NEB SOL ONE (10:52)
[2018-11-23] MEDS ORDERED: METHYLPREDNISOLONE 125 MG INJ ONE (10:52)
[2018-11-23] MEDS ORDERED: ASPIRIN 81 MG CHEWABLE TABLET ONE (10:52)
[2018-11-23] MEDS ORDERED: IPRATROPIUM BROM 0.5MG/2.5ML ONE (10:52)
[2018-11-23 11:17] LABS: ALT/SGPT 7 U/L (12-78); AST/SGOT 12 U/L (15-37); Albumin 2.2 g/dL (3.4-5.0); Alkaline Phosphatase 52 U/L (45-117); BUN Blood Urea Nitrogen 34 mg/dL (7-18); Bilirubin Direct < 0.1 mg/dL (0-0.2); Bilirubin Total 0.2 mg/dL (0.2-1.0); Glucose Level 96 mg/dL (74-106); Magnesium 2.7 mg/dL (1.8-2.4); NT PRO-BNP 7908 pg/mL (<450); Potassium 4.3 mmol/L (3.5-5.1); Sodium Level 139 mmol/L (136-145); Troponin (Emerg Dept Use Only) 0.02 ng/mL (0.0-0.045)
[2018-11-23 11:19] LABS: Bicarbonate 44 mmol/L (21-32)
[2018-11-23] MEDS ORDERED: Levofloxacin 750mg IV 750 MG/150 ML BAG IV ONE (12:37)
[2018-11-23] MEDS ORDERED: FUROSEMIDE 40 MG/4 ML VIAL ONE (12:37)
--- NOTE | 2018-11-23 12:45 | ER ---
Nurse's Notes [facility] Name: Abner Thmoas Age: 78 yrs Sex: Male : 1940 Arrival Date: 11/23/2018 Time: 10:15 Bed 8 Private MD: Diagnosis: Chronic obstructive pulmonary disease with (acute) exacerbation;Unspecified combined systolic (congestive) and diastolic (congestive) heart failure Presentation: 11/23 10:15 Presenting complaint: EMS states: Patient called for increasing shortness of breath. O2 aj1 sat was 89% on EMS arrival, he was given an Albuterol neb treatment and sat went up to 96%. Patient was recently discharged from this facility on November 11 for the same complaint. Transition of care: patient was not received from another setting of care. Onset of symptoms was November 23, 2018. Risk Assessment: Do you want to hurt yourself or someone else? Patient reports no desire to harm self or others. Initial Sepsis Screen: Does the patient meet any 2 criteria? RR > 20 per min. HR > 90 bpm. Yes Does the patient have a suspected source of infection? No. Patient's initial sepsis screen is negative. Care prior to arrival: None. 10:15 Method Of Arrival: EMS: [facility] aj1 10:15 Acuity: MALATHI 2 aj1 Triage Assessment: 10:21 General: Appears uncomfortable, Behavior is calm, cooperative, appropriate for age. aj1 Neuro: Level of Consciousness is awake, alert, obeys commands. Cardiovascular:. Respiratory: Airway is patent Respiratory effort is even, labored, Respiratory pattern is tachypnea the patient has moderate shortness of breath. Historical: - Allergies: 10:21 No Known Allergies; aj1 - Home Meds: 10:21 levothyroxine 100 mcg oral tab 1 tab once daily [Active]; lovastatin 40 mg Oral tab 1 aj1 tab once daily [Active]; bumetanide 2 mg Oral tab 1 tab once daily [Active]; megestrol 400 mg/10 mL (10 mL) Oral susp 10 mL once daily [Active]; Xarelto 15 mg Oral tab daily [Active]; carvedilol 6.25 mg Oral tab 1 tab every 12 hours [Active]; Incruse Ellipta 62.5 mcg/actuation inhalation dsdv 1 puff once daily [Active]; Symbicort 160-4.5 mcg/actuation inhalation HFAA 2 puffs 2 times per day [Active]; docusate sodium 100 mg Oral cap 1 cap once daily [Active]; - PMHx: 10:21 cancer of right kidney, mass and kidney removed.; COPD; possible pulmonary fibrosis; aj1 Hyperlipidemia; Hypertension; - Immunization history:: Flu vaccine is up to date. - Social history:: Smoking status: Patient/guardian denies using tobacco. - Ebola Screening: : Patient denies travel to an Ebola-affected area in the 21 days before illness onset. Screenin:33 Abuse screen: Denies threats or abuse. Denies injuries from another. Nutritional bp screening: No deficits noted. Tuberculosis screening: No symptoms or risk factors identified. Fall Risk None identified. Assessment: 10:25 General: Appears distressed, uncomfortable, slender, Behavior is cooperative, bp appropriate for age, anxious. Pain: Denies pain. Neuro: Level of Consciousness is awake, alert, obeys commands, Oriented to person, place, time, situation, Appropriate for age. Cardiovascular: Rhythm is sinus rhythm. Respiratory: Airway is patent Respiratory effort is even, labored, Respiratory pattern is symmetrical, hyperventilation. GI: No signs and/or symptoms were reported involving the gastrointestinal system. : No signs and/or symptoms were reported regarding the genitourinary system. EENT: No deficits noted. Derm: No deficits noted. Musculoskeletal: Circulation, motion, and sensation intact. Range of motion: intact in all extremities. 12:00 Reassessment: PT MAINTAINING SPO2 ON BIPAP. ALL CURRENT ORDERS COMPLETE. bp 14:00 Reassessment: VS STABLE ON MONITOR, ADMIT IN PROCESS. bp 15:07 Reassessment: INITIATED REPORT FOR 207. bp Vital Signs: 10:21 BP 102 / 68; Pulse 93; Resp 31; Pulse Ox 86% on 4 lpm NC; aj1 10:25 Weight 61.23 kg (R); Height 5 ft. 8 in. (172.72 cm) (R); aj1 10:26 Temp 97.7(A); aj1 10:28 Pulse 89; Resp 27; Pulse Ox 92% on BiPAP; aj1 10:34 BP 106 / 64; Pulse 81; Resp 19; Pulse Ox 91% ; bp 11:00 BP 113 / 71; Pulse 87; Resp 32; Pulse Ox 95% ; bp 12:00 BP 118 / 57; Pulse 82; Resp 24; Pulse Ox 95% ; bp 10:25 Body Mass Index 20.53 (61.23 kg, 172.72 cm) aj1 ED Course: 10:15 Patient arrived in ED. aj1 10:16 Maco Mccord MD is Attending Physician. gs 10:17 Clifford Keene PA is PHCP. cp 10:18 Triage completed. aj1 10:20 Inserted saline lock: 20 gauge in left forearm, using aseptic technique. Blood bp collected. 10:21 Arm band placed on Patient placed in an exam room, Patient triaged in ER bed 8. aj1 10:29 EKG done, by wind energy technician. reviewed by Maco Mccord MD. at1 10:31 Casey Haro, LIBBY is Primary Nurse. bp 10:32 X-ray completed. Portable x-ray completed in exam room. Patient tolerated procedure jb2 well. 10:33 XRAY Chest (1 view) In Process Unspecified. EDMS 10:33 Patient has correct armband on for positive identification. Bed in low position. Call bp light in reach. Side rails up X2. Adult w/ patient. 12:43 Salas Conde DO is Hospitalizing Provider. cp 15:16 No provider procedures requiring assistance completed. Patient admitted, IV remains in bp place. Administered Medications: 10:40 Drug: SOLU-Medrol 125 mg Route: IVP; Site: left forearm; bp 10:40 Drug: Albuterol - atroVENT (3:1) (2.5 mg - 0.5 mg) 3 ml Route: Nebulizer; bp 12:09 Follow up: Response: No adverse reaction bp 10:40 Drug: Aspirin Chewable Tablet 162 mg Route: PO; bp 12:09 Follow up: Response: No adverse reaction bp 10:40 Drug: Magnesium Sulfate 1 grams Route: IVPB; Infused Over: 1 hrs; Site: left forearm; bp 11:50 Follow up: IV Status: Completed infusion; IV Intake: 100ml bp 12:30 Drug: Lasix 40 mg Route: IVP; Site: left forearm; bp 13:05 Follow up: Response: No adverse reaction bp 12:30 Drug: LevaQUIN 750 mg Volume: 150 ml; Route: IVPB; Infused Over: 90 mins; Site: left bp forearm; 15:20 Follow up: IV Status: Completed infusion bp Intake: 11:50 IV: 100ml; Total: 100ml. bp Outcome: 12:44 Decision to Hospitalize by Provider. cp 15:12 Admitted to Med/surg accompanied by tech, family with patient, via wheelchair, room bp 207, with oxygen, with chart, Report called to JORGITO SOUZA 15:12 Condition: stable 15:12 Instructed on the need for admit. 15:21 Patient left the ED. bp Signatures: Dispatcher [employer] EDCarmen Corbett, RN RN aj1 Dennis Rodriguez jb2 Kristen Vasquez, seismology technical officer EKG Tat1 Clifford Keene PA PA cp Starr, Gregory, MD MD gs Peltier, Brian, RN RN bp
--- NOTE | 2018-11-23 12:46 | EDPHYS ---
Physician Documentation [facility] Name: Abner Thomas Age: 78 yrs Sex: Male : 1940 Arrival Date: 11/23/2018 Time: 10:15 Bed 8 Private MD: ED Physician Maco Mccord HPI: 11/23 10:25 This 78 yrs old Male presents to ER via EMS with complaints of COPD cp Exacerbation. 10:25 The patient has shortness of breath at rest. cp 10:25 Onset: The symptoms/episode began/occurred yesterday. Duration: The symptoms are cp continuous, and are steadily getting worse. 10:25 Associated signs and symptoms: Pertinent negatives: chest pain, diaphoresis, fever, cp vomiting. Severity of symptoms: in the emergency department the symptoms are unchanged despite home interventions. The patient has experienced similar episodes in the past, chronically. Historical: - Allergies: 10:21 No Known Allergies; aj1 - Home Meds: 10:21 levothyroxine 100 mcg oral tab 1 tab once daily [Active]; lovastatin 40 mg Oral tab 1 aj1 tab once daily [Active]; bumetanide 2 mg Oral tab 1 tab once daily [Active]; megestrol 400 mg/10 mL (10 mL) Oral susp 10 mL once daily [Active]; Xarelto 15 mg Oral tab daily [Active]; carvedilol 6.25 mg Oral tab 1 tab every 12 hours [Active]; Incruse Ellipta 62.5 mcg/actuation inhalation dsdv 1 puff once daily [Active]; Symbicort 160-4.5 mcg/actuation inhalation HFAA 2 puffs 2 times per day [Active]; docusate sodium 100 mg Oral cap 1 cap once daily [Active]; - PMHx: 10:21 cancer of right kidney, mass and kidney removed.; COPD; possible pulmonary fibrosis; aj1 Hyperlipidemia; Hypertension; - Immunization history:: Flu vaccine is up to date. - Social history:: Smoking status: Patient/guardian denies using tobacco. - Ebola Screening: : Patient denies travel to an Ebola-affected area in the 21 days before illness onset. ROS: 10:30 Constitutional: Negative for body aches, chills, fever, poor PO intake. cp 10:30 Eyes: Negative for injury, pain, redness, and discharge. cp 10:30 Cardiovascular: Positive for edema, Negative for chest pain, palpitations. cp 10:30 ENT: Negative for drainage from ear(s), ear pain, sore throat, difficulty swallowing, cp difficulty handling secretions. 10:30 Respiratory: Positive for cough, shortness of breath, at rest. 10:30 Abdomen/GI: Negative for abdominal pain, nausea, vomiting, and diarrhea, constipation, black/tarry stool, rectal bleeding. 10:30 Skin: Negative for cellulitis, rash. 10:30 Neuro: Negative for altered mental status, headache, weakness. 10:30 All other systems are negative. Exam: 10:35 Constitutional: The patient appears in no acute distress, alert, awake, cp non-diaphoretic, non-toxic, well developed, well nourished. 10:35 Head/Face: Normocephalic, atraumatic. cp 10:35 Eyes: Periorbital structures: appear normal, Conjunctiva: normal, no exudate, no injection, Sclera: no appreciated abnormality, Lids and lashes: appear normal, bilaterally. 10:35 ENT: External ear(s): are unremarkable, Ear canal(s): are normal, clear, TM's: bulging, is not appreciated, bilaterally, erythema, is not appreciated, bilaterally, Nose: is normal, Mouth: Lips: moist, Oral mucosa: moist, Posterior pharynx: Airway: no evidence of obstruction, patent, Tonsils: are normal in appearance, Uvula: midline, swelling, is not appreciated, erythema, is not appreciated, exudate, is not appreciated. 10:35 Neck: ROM/movement: is normal, is supple, without pain, no range of motions limitations, no meningismus, no nuchal rigidity, Lymph nodes: no appreciated lymphadenopathy. 10:35 Chest/axilla: Inspection: normal, Palpation: is normal, no crepitus, no tenderness. 10:35 Cardiovascular: Rate: normal, Rhythm: regular, Pulses: Pulses are 2+ in right radial artery and left radial artery. Edema: ankle edema, that is mild, JVD: is not appreciated. 10:35 Respiratory: moderate respiratory distress is noted, Respirations: labored breathing, that is moderate, shallow respirations, that is moderate, tachypnea, that is moderate, Breath sounds: decreased breath sounds, that are moderate, stridor, is not appreciated, wheezing: is not appreciated. 10:35 Abdomen/GI: Inspection: abdomen appears normal, Bowel sounds: active, all quadrants, cp Palpation: abdomen is soft and non-tender, in all quadrants. 10:35 Back: pain, is absent, ROM is normal. 10:35 Skin: cellulitis, is not appreciated, no rash present. 10:35 Neuro: Orientation: to person, place \T\ time. Mentation: is normal, Cerebellar function: is grossly normal, Motor: moves all fours, strength is normal, Sensation: is normal. Vital Signs: 10:21 BP 102 / 68; Pulse 93; Resp 31; Pulse Ox 86% on 4 lpm NC; aj1 10:25 Weight 61.23 kg (R); Height 5 ft. 8 in. (172.72 cm) (R); aj1 10:26 Temp 97.7(A); aj1 10:28 Pulse 89; Resp 27; Pulse Ox 92% on BiPAP; aj1 10:34 BP 106 / 64; Pulse 81; Resp 19; Pulse Ox 91% ; bp 11:00 BP 113 / 71; Pulse 87; Resp 32; Pulse Ox 95% ; bp 12:00 BP 118 / 57; Pulse 82; Resp 24; Pulse Ox 95% ; bp 10:25 Body Mass Index 20.53 (61.23 kg, 172.72 cm) aj1 MDM: 10:17 Patient medically screened. cp 10:30 Differential diagnosis: CHF exacerbation, Chronic Obstructive Pulmonary Disease cp pneumonia, pulmonary edema, Sepsis Unstable Angina. 12:15 Data reviewed: vital signs, nurses notes, lab test result(s), radiologic studies, plain cp films. 12:15 Test interpretation: by ED physician or midlevel provider: plain radiologic studies. cp Counseling: I had a detailed discussion with the patient and/or guardian regarding: the historical points, exam findings, and any diagnostic results supporting the discharge/admit diagnosis, lab results, radiology results, the need for further work-up and treatment in the hospital. 12:25 Physician consultation: Salas Conde DO regarding admission, to the telemetry unit. cp patient's condition, and will see patient in ED, shortly. 11/23 10:20 Order name: Basic Metabolic Panel; Complete Time: 12:04 cp 11/23 12:04 Interpretation: Normal except: CL 93; CO2 44; BUN 34; GFR 62. cp 11/23 10:20 Order name: CBC with Diff; Complete Time: 12:04 11/23 12:04 Interpretation: Normal except: EDMUNDO% 78.1; LYM% 13.4. cp 11/23 10:20 Order name: LFT's; Complete Time: 12:04 11/23 10:20 Order name: Magnesium; Complete Time: 12:04 11/23 10:20 Order name: NT PRO-BNP; Complete Time: 12:04 11/23 10:20 Order name: PT-INR; Complete Time: 12:04 cp 11/23 10:20 Order name: Troponin (emerg Dept Use Only); Complete Time: 12:04 11/23 10:20 Order name: XRAY Chest (1 view); Complete Time: 12:04 11/23 10:20 Order name: Influenza Screen (a \T\ B); Complete Time: 12:04 11/23 10:20 Order name: Blood Culture Adult (2) 11/23 10:20 Order name: Procalcitonin; Complete Time: 12:04 11/23 10:20 Order name: Lactate; Complete Time: 12:04 11/23 10:21 Order name: BIPAP 11/23 10:20 Order name: EKG; Complete Time: 10:22 11/23 10:20 Order name: Cardiac monitoring; Complete Time: 10:37 11/23 10:20 Order name: EKG - Nurse/Tech; Complete Time: 10:37 11/23 10:20 Order name: IV Saline Lock; Complete Time: 10:37 11/23 10:20 Order name: Labs collected and sent; Complete Time: 10:36 cp 11/23 10:20 Order name: O2 Per Protocol; Complete Time: 10:36 cp 11/23 10:20 Order name: O2 Sat Monitoring; Complete Time: 10:36 11/23 13:07 Order name: Social Service Consult EDMS Administered Medications: 10:40 Drug: SOLU-Medrol 125 mg Route: IVP; Site: left forearm; bp 10:40 Drug: Albuterol - atroVENT (3:1) (2.5 mg - 0.5 mg) 3 ml Route: Nebulizer; bp 12:09 Follow up: Response: No adverse reaction bp 10:40 Drug: Aspirin Chewable Tablet 162 mg Route: PO; bp 12:09 Follow up: Response: No adverse reaction bp 10:40 Drug: Magnesium Sulfate 1 grams Route: IVPB; Infused Over: 1 hrs; Site: left forearm; bp 11:50 Follow up: IV Status: Completed infusion; IV Intake: 100ml bp 12:30 Drug: Lasix 40 mg Route: IVP; Site: left forearm; bp 13:05 Follow up: Response: No adverse reaction bp 12:30 Drug: LevaQUIN 750 mg Volume: 150 ml; Route: IVPB; Infused Over: 90 mins; Site: left bp forearm; 15:20 Follow up: IV Status: Completed infusion bp Disposition: 11/24 09:26 Co-signature as Attending Physician, Maco Mccord MD. Disposition: 11/23/18 12:44 Hospitalization ordered by Salas Conde for Inpatient Admission. Preliminary diagnosis are Chronic obstructive pulmonary disease with (acute) exacerbation, Unspecified combined systolic (congestive) and diastolic (congestive) heart failure. - Bed requested for Telemetry/MedSurg (Inpatient). - Status is Inpatient Admission. bp - Condition is Stable. - Problem is an acute exacerbation. - Symptoms have improved. UTI on Admission? No Signatures: Dispatcher [employer] Anne Braun Angela, RN RN aj1 Clifford Keene PA PA Maco Vgeas MD MD Casey Haro RN RN bp Corrections: (The following items were deleted from the chart) 11/23 14:48 12:44 Hospitalization Ordered by Salas Conde DO for Inpatient Admission. Preliminary bd diagnosis is Chronic obstructive pulmonary disease with (acute) exacerbation; Unspecified combined systolic (congestive) and diastolic (congestive) heart failure. Bed requested for Telemetry/MedSurg (Inpatient). Status is Inpatient Admission. Condition is Stable. Problem is an acute exacerbation. Symptoms have improved. UTI on Admission? No. cp 15:21 14:48 11/23/2018 12:44 Hospitalization Ordered by Salas Conde DO for Inpatient bp Admission. Preliminary diagnosis is Chronic obstructive pulmonary disease with (acute) exacerbation; Unspecified combined systolic (congestive) and diastolic (congestive) heart failure. Bed requested for Telemetry/MedSurg (Inpatient). Status is Inpatient Admission. Condition is Stable. Problem is an acute exacerbation. Symptoms have improved. UTI on Admission? No. bd
--- NOTE | 2018-11-23 13:05 | P.HP ---
Certification for Inpatient Patient admitted to: Inpatient With expected LOS: >2 Midnights Patient will require the following post-hospital care: Halfway Practitioner: I am a practitioner with admitting privileges, knowledge of patient current condition, hospital course, and medical plan of care. Services: Services provided to patient in accordance with Admission requirements found in Title 42 Section 412.3 of the Code of Federal Regulations Patient History Date of Service: 11/23/18 Primary Care Provider: Dr. Nino(I am covering for him); Pulm-Dr. Tellez; Card-Dr. Norton Reason for admission: Shortness of breath, edema lower extremities History of Present Illness: 78-year-old male presented to emergency room with shortness of breath and increasing edema to the lower extremity. Patient with advanced COPD, CHF diastolic dysfunction, atrial fibrillation on chronic anti coalition therapy, hypothyroidism and hyperlipidemia. Patient has been hospitalized multiple times. On his last hospitalization patient was evaluated for noninvasive ventilator. He did not qualify. Although, Patient was qualified for BiPAP. Since being at home he has been having increasing shortness of breath. He is not on a fluid restriction. Patient takes diuretic therapy but still has some increasing edema. He became short of breath and came to the emergency room. In the ER patient evaluated. Patient with low oxygen saturations. Patient required BiPAP in the emergency room. Patient was given IV Lasix. White count 5.7, hemoglobin 14. Sodium 139, potassium 4.3, BUN of 34, creatinine 1.13 with a GFR of 60. BNP elevated. Pro calcitonin and lactic acid unremarkable. Chest x-rayed showed CHF pattern. Patient was admitted for further treatment. When I saw the patient ER, patient appeared stable on BiPAP. Family at bedside. Patient denies any fever, chills, increasing cough. Patient compliant with his medication and BiPAP at home. Allergies No Known Drug Allergies Allergy (Verified 05/31/18 16:51) Unknown Home medications list reviewed: Yes Home Medications: Levothyroxine [Synthroid*] 0.1 mg PO [id number] 04/06/13 Lovastatin [Mevacor*] 40 mg PO BEDTIME 04/06/13 Carvedilol [Coreg*] 6.25 mg PO BID #60 tab 04/12/13 Rivaroxaban [Xarelto*] 15 mg PO DAILY #30 tablet 05/31/13 Docusate [Colace Cap*] 100 mg PO BID 08/09/16 Budesonide/Formoterol Fumarate [Symbicort 80-4.5 Mcg Inhaler] 2 puff IH BID 01/28 Ipratropium Mdi [Atrovent Hf Inhaler*] 2 puff IH Q4H PRN 05/15/18 Umeclidinium [place] [Incruse Ellipta] 2 puff IH DAILY 05/15/18 Bumetanide [Bumex] 2 mg PO BID 10/28/18 Budesonide/Formoterol Fumarate [Symbicort 160-4.5 Mcg Inhaler] 2 puff IH BID Ipratropium [place] [Atrovent Hfa] 12.9 gm IH DAILY PRN 10/29/18 Polyethylene Glycol 3350 [Miralax] 17 gm PO DAILY 10/29/18 Umeclidinium [place] [Incruse Ellipta] 2 appl IH DAILY 10/29/18 - Past Medical/Surgical History Diabetic: No -: HTN -: Hyperlipidemia -: Hypothyroidism -: CAD, [place] x2 () -: COPD -: Diastolic CHF -: History of right kidney cancer status post nephrectomy -: Atrial fibrillation, chronic anti coagulation -: Kana Cataract surgery -: Right Kidney removal on AUG 2016 Psychosocial/ Personal History: Patient - Family History Father -: Hypertension, Stroke Notes: aneursym Mother Notes: alzhemiers Brother -: Heart disease, Hypertension Notes: chf Sister -: Heart disease, Hypertension, Cancer Notes: fibromyalgia, breast cancer - Social History Smoking Status: Former smoker Alcohol use: No CD- Drugs: No Caffeine use: Yes Place of Residence: Home Review of Systems General: Weakness, As per HPI Eyes: Unremarkable ENT: Unremarkable Respiratory: Shortness of Breath, As per HPI Cardiovascular: Edema, As per HPI Gastrointestinal: Unremarkable Genitourinary: Unremarkable Musculoskeletal: Pedal edema, As per HPI Integumentary: Unremarkable Neurological: Unremarkable Lymphatics: Unremarkable Physical Examination - Physical Exam General: Alert, Oriented x3, Cooperative, Mild distress, Other (Currently on BiPAP) HEENT: Atraumatic, Other (Dry mucous membranes) Neck: Supple, No Thyromegaly Respiratory: Diminished (Bilateral to the bases), Crackles/rales (Bilateral to the bases) Cardiovascular: Normal pulses, Regular rate/rhythm Gastrointestinal: Normal bowel sounds, Soft and benign, Non-distended, No tenderness, No masses, No rebound, No guarding Musculoskeletal: No erythema, No tenderness, No warmth Integumentary: Tenderness/swelling (1 to 2+ pitting edema to the lower extremities) Neurological: Normal speech, Normal strength at 5/5 x4 extr, Normal tone, Normal affect - Studies Laboratory Data (last 24 hrs) 11/23/18 10:20: PT 21.5 H, INR 1.81 11/23/18 10:20: WBC 5.7, Hgb 14.1, Hct 43.7, Plt Count 292 11/23/18 10:20: Sodium 139, Potassium 4.3, BUN 34 H, Creatinine 1.13, Glucose 96 , Magnesium 2.7 H, Total Bilirubin 0.2, AST 12 L, ALT 7 L, Alkaline Phosphatase 52 Microbiology Data (last 24 hrs): 11/23/18 10:20 Nasopharnyx Influenza Type A Antigen Screen - Final 11/23/18 10:20 Nasopharnyx Influenza Type B Antigen Screen - Final Assessment and Plan - Plan Impression: Acute on chronic respiratory failure secondary to acute on chronic diastolic CHF with COPD exacerbation Atrial fibrillation on chronic anti coagulation therapy Hypertension Hypothyroidism Hyperlipidemia Plan: Acute on chronic respiratory failure secondary to acute on chronic diastolic CHF with COPD exacerbation: Patient will be admitted for treatment. Will continue with BiPAP. Will try to wean off BiPAP. Will continue with IV Lasix. Will place on a fluid restriction. Will start low-dose steroid and COPD treatment. Suspect this more related to CHF versus COPD. Will consult pulmonology to further evaluate. Will also consult cardiology for further recommendation. Patient would benefit with skilled placement. Patient is agreeable to this. Will contact older adult social work specialist to help in this process. Advanced directives address in detail. Patient is DNR. Other consideration would be hospice as the patient has advanced CHF and COPD. Patient also agreeable to this if his condition declines. Atrial fibrillation on chronic anti coagulation therapy: Continue with his medication including carvedilol and Xarelto. Hypertension: Continue with medication. Will monitor and adjust appropriately. Hypothyroidism: Continue with his medication. Hyperlipidemia: Continue with medication. Discharge Plan: Other (group home facility) Plan to discharge in: Greater than 2 days - Advance Directives Does patient have a Living Will: No Does patient have a Durable POA for Healthcare: Yes - Code Status/Comfort Care Code Status Assessed: Yes (Patient is DNR) Time Spent Managing Pts Care (In Minutes): 55
--- NOTE | 2018-11-23 14:14 | EKG ---
Test Date: 2018-11-23 Test Time: 10:21:37 [employer]istro Server: ELGIN MEASUREMENT RESULTS: Intervals: Rate: 92 UT: 208 QRSD: 124 QT: 386 QTc: 477 [place]: P: 23 UT: 208 QRS: -45 T: 54 INTERPRETIVE STATEMENTS: Sinus rhythm with marked sinus arrhythmia Left axis deviation Anterior infarct, age undetermined Abnormal ECG Compared to ECG 10/29/2018 13:34:01 Left-axis deviation now present Myocardial infarct finding still present Electronically Signed On 11-23-18 14:13:28 [employer] MA[employer]GER [employer] by Armand Norton
[2018-11-23] MEDS ORDERED: ACETAMINOPHEN 500 MG TAB PO PRN (15:27)
[2018-11-23] MEDS ORDERED: ONDANSETRON 4 MG/2 ML VIAL IV PRN (15:27)
[2018-11-23] MEDS: RIVAROXABAN 15 MG TABLET PO SCH (16:22)
[2018-11-23] MEDS: FUROSEMIDE 40 MG/4 ML VIAL IV SCH (16:22)
[2018-11-23 16:46] LABS: CKMB Creatine Kinase MB < 1.0 ng/mL (0.3-3.6); Creatine Phosphokinase 25 U/L (39-308); Troponin I 0.02 ng/mL (0.0-0.045)
[2018-11-23 17:40] LABS: Arterial Blood Carboxyhemoglob 1.7 % (0-1.5); Blood Gas Oxyhemoglobin 88.8 % (94-97); Blood O2 Saturation 90.8 % (92-98.5)
[2018-11-23] MEDS: IPRATROPIUM BROM 0.5MG/2.5ML NEB PRN (20:15)
[2018-11-23] MEDS: ARFORMOTEROL TARTRATE 15 MCG/2 ML VIAL.NEB NEB SCH (20:15)
[2018-11-23] MEDS: CARVEDILOL 6.25 MG TAB PO SCH (20:55)
[2018-11-23] MEDS: predniSONE 10 MG TAB PO SCH (20:55)
[2018-11-23] MEDS: FAMOTIDINE 20 MG TAB PO SCH (20:55)
[2018-11-23] MEDS: ATORVASTATIN 20 MG TAB PO SCH (20:55)
[2018-11-23] MEDS: ALBUTEROL 2.5 MG/3 ML NEB SOL NEB PRN (22:25)
--- NOTE | 2018-11-23 22:34 | CON ---
Chief Complaint: Dyspnea, oxygen desaturations. He gets his oxygen measured at home frequently. He has a meter. He is on home oxygen. He is severely ill from a number of chronic medical problems. He has coronary heart disease with stents. He has congestive heart failure with normal ejection fraction. He does not have significant valvular heart disease. EF 57%. We do not detect any classic diastolic dysfunction signs, but we think he has diastolic dysfunction. He also has pleural effusions and a lot of pulmonary disease from a previous history of smoking and from multiple metastases to the lungs from renal cell carcinoma. He has had pleural effusions. He has had Opdivo treatment and had some improvement in the lungs. I am not sure if his oncologist considers him completely free of disease or if they think it is recurrent and causing part of his pulmonary problems. He saw Dr. Napier roughly a month ago. He was retaining CO2 then. We have not done a blood gas at this point. His outpatient medications have been Symbicort, Atrovent,Xarelto, docusate, bumetanide, lovastatin, levothyroxine, carvedilol, and Incruse Ellipta. He is officially a do not resuscitate patient. He has home nebulizers and home oxygen treatment. He has a history of AFib, CAD, congestive heart failure, metastatic renal cancer, and COPD. Physical Examination: Vital Signs: Height 5 feet 8 inches, 132 pounds. General: He appears underweight, not in any respiratory distress. He has a very ill appearance to it. Lungs: Revealed decreased breath sounds in he base. There is egophony in both lung finley. Heart: Exam reveals distant tones. It is irregular. Extremities: Reveal mild edema. His electrocardiogram today shows sinus rhythm with marked sinus arrhythmia, anterior infarct, left axis deviation, not much different from older EKGs. Impression: The patient probably needs a little more diuresis. It might be lua for us to do a blood gas to see if he is retaining a lot of CO2. LESLEY/DERRICK Voice ID: [id number] Report ID: [id number]
[2018-11-23 22:38] LABS: Urine Appearance CLEAR; Urine Bilirubin NEGATIVE (NEG); Urine Blood NEGATIVE (NEG); Urine Color YELLOW; Urine Glucose NEGATIVE (NEG); Urine Protein NEGATIVE (NEG); Urine Specific Gravity 1.015 (1.005-1.030)
[2018-11-23 22:43] LABS: Urine Microscopic Reflex NO UMIC
[2018-11-24 01:42] LABS: CKMB Creatine Kinase MB < 1.0 ng/mL (0.3-3.6); Creatine Phosphokinase 23 U/L (39-308); Troponin I 0.02 ng/mL (0.0-0.045)
[2018-11-24 05:33] LABS: Absolute Lymphocytes (CBC) 0.4 K/uL (0.7-4.9); Absolute Monocytes 0.2 K/uL (0.1-1.3); Basophils % 0.1 % (0-1.3); Hematocrit 39.6 % (39.6-49.0); Lymphocytes % 12.1 % (15.3-44.8); MPV 8.3 fL (7.6-11.3); Monocytes % 5.5 % (3.3-12.3); RBC Red Blood Cell Count 4.54 M/uL (4.33-5.43)
[2018-11-24] MEDS: LEVOTHYROXINE SOD 0.1 MG TAB PO SCH (05:45)
[2018-11-24 06:06] LABS: BUN Blood Urea Nitrogen 34 mg/dL (7-18); Glucose Level 135 mg/dL (74-106); HDL Cholesterol 43 mg/dL (40-60); LDL Cholesterol, Calculated 82 (<130); Magnesium 2.8 mg/dL (1.8-2.4); Potassium 4.6 mmol/L (3.5-5.1); Sodium Level 140 mmol/L (136-145)
[2018-11-24 06:08] LABS: Bicarbonate > 45 mmol/L (21-32)
[2018-11-24] MEDS: ARFORMOTEROL TARTRATE 15 MCG/2 ML VIAL.NEB NEB SCH ×2 (07:26→19:10)
--- NOTE | 2018-11-24 08:27 | RAD REPORT ---
EXAM DESCRIPTION: RAD - Chest Single View - 11/24/2018 7:00 am CLINICAL HISTORY: CHF, COPD COMPARISON: November 23 TECHNIQUE: AP portable chest image was obtained [id number] hours . FINDINGS: Extensive interstitial opacification is present in the lung finley with lower lung field a irspace opacification and bilateral pleural effusions. Cardiac silhouette is enlarged. Vasculature is engorged. Right-sided Port-A-Cath is in place. No pneumothorax. No acute bony abnormality seen. No a cute aortic findings suspected. IMPRESSION: Extensive pleural and parenchymal opacification stable from November 23.
[2018-11-24] MEDS: FUROSEMIDE 40 MG/4 ML VIAL IV SCH ×2 (08:58→16:41)
[2018-11-24] MEDS: CARVEDILOL 6.25 MG TAB PO SCH ×2 (08:59→21:17)
[2018-11-24] MEDS: FAMOTIDINE 20 MG TAB PO SCH (08:59)
[2018-11-24] MEDS: predniSONE 10 MG TAB PO SCH ×2 (09:00→21:18)
--- NOTE | 2018-11-24 09:47 | PN ---
Mr. Thomas looks a lot more alert today. He really does retain CO2. It was present yesterday. I susp ect that is a major part of what makes him deteriorate with his respiratory status. Presently, he lo oks better. I do not really hear any evidence of pulmonary edema, but he does have bilateral pleural effusions that seem stable. I will not make any changes in his recommended medications. LESLEY/MODRafiq Voice ID: [id number] Report ID: [id number]
[2018-11-24] MEDS: acetaZOLAMIDE 250 MG TAB PO SCH (10:54)
--- NOTE | 2018-11-24 13:45 | P.PN ---
Subjective Date of Service: 11/24/18 Primary Care Provider: Dr. Nino(I am covering for him); Pulm-Dr. Tellez; Card-Dr. Norton Chief Complaint: Shortness of breath, edema lower extremities Subjective: Improving Physical Examination - Vital Signs Temperature: 98.0 F Blood Pressure: 124/62 Pulse: 81 Respirations: 22 Pulse Ox (%): 98 - Physical Exam General: Alert, In no apparent distress, Oriented x3, Cooperative HEENT: Atraumatic Neck: Supple Respiratory: Crackles/rales (Bilateral) Cardiovascular: Irregular heart rate/rhythm (Atrial fibrillation, rate controlled) Gastrointestinal: Normal bowel sounds, Soft and benign, Non-distended, No tenderness, No masses, No rebound, No guarding Musculoskeletal: No erythema, No tenderness, No warmth Integumentary: Tenderness/swelling (Edema to the lower extremities bilateral slightly improved) Neurological: Normal speech, Normal strength at 5/5 x4 extr, Normal tone, Normal affect - Studies Microbiology Data (last 24 hrs): 11/23/18 10:20 Nasopharnyx Influenza Type A Antigen Screen - Final 11/23/18 10:20 Nasopharnyx Influenza Type B Antigen Screen - Final Medications List Reviewed: Yes Assessment & Plan Discharge Plan: Other (Skilled placement) Plan to discharge in: 48 Hours Physician Review Additional Text: Impression: Acute on chronic respiratory failure with hypercapnia and hypoxia secondary to acute on chronic diastolic CHF with COPD exacerbation also with likely chronic but Atrial fibrillation on chronic anti coagulation therapy Hypertension Hypothyroidism Hyperlipidemia Plan: Acute on chronic respiratory failure with hypercapnia and hypoxia secondary to acute on chronic diastolic CHF with COPD exacerbation also with likely chronic pleural effusions: Patient slightly improved. Continue to maintain sats above 90%. Continue wean off BiPAP. Patient with home BiPAP. Continue with fluid restriction and IV Lasix. Continue CHF and COPD treatment. Cardiology consulted. Pulmonology also consulted to further evaluate. Patient willing to go to a skilled facility. Will consult social services counselor to help with this. Advanced directives address in detail yesterday. Patient is DNR. Other consideration would be hospice as the patient has advanced CHF and COPD. Patient also agreeable to this if his condition declines. I will turn the service over to Dr. Duggan tomorrow. I will go over the plan of care with her. Atrial fibrillation on chronic anti coagulation therapy: Continue with his medication including carvedilol and Xarelto. Hypertension: Continue with medication. Will monitor and adjust appropriately. Hypothyroidism: Continue with his medication. Hyperlipidemia: Continue with medication. Time Spent Managing Pts Care (In Minutes): 55
--- NOTE | 2018-11-24 14:14 | EKG ---
Test Date: 2018-11-23 Test Time: 23:47:56 Vp Sales: RT MEASUREMENT RESULTS: Intervals: Rate: 92 MN: 196 QRSD: 132 QT: 398 QTc: 492 [place]: P: 40 MN: 196 QRS: -39 T: 39 INTERPRETIVE STATEMENTS: Sinus rhythm with sinus arrhythmia with occasional premature ventricular complexes Left axis deviation Nonspecific intraventricular block Cannot rule out Anterior infarct, age undetermined Abnormal ECG Compared to ECG 11/23/2018 10:21:37 Ventricular premature complex(es) now present Myocardial infarct finding still present Electronically Signed On 11-24-18 14:13:26 [employer] by Armand Norton
[2018-11-24] MEDS: IPRATROPIUM BROM 0.5MG/2.5ML NEB PRN ×2 (16:03→19:10)
[2018-11-24] MEDS: ALBUTEROL 2.5 MG/3 ML NEB SOL NEB PRN (16:03)
[2018-11-24] MEDS: RIVAROXABAN 15 MG TABLET PO SCH (16:40)
[2018-11-24] MEDS: ENSURE ENLIVE 237 ML CAN PO SCH (21:17)
[2018-11-24] MEDS: ATORVASTATIN 20 MG TAB PO SCH (21:17)
[2018-11-25] MEDS: LEVOTHYROXINE SOD 0.1 MG TAB PO SCH (06:21)
[2018-11-25 06:44] LABS: Absolute Lymphocytes (CBC) 0.7 K/uL (0.7-4.9); Absolute Monocytes 0.6 K/uL (0.1-1.3); Absolute Neutrophil 7.7 K/uL (1.8-8.0); Basophils % 0.4 % (0-1.3); Hematocrit 44.9 % (39.6-49.0); Lymphocytes % 8.1 % (15.3-44.8); MPV 8.5 fL (7.6-11.3); Monocytes % 6.1 % (3.3-12.3); RBC Red Blood Cell Count 5.07 M/uL (4.33-5.43)
[2018-11-25 07:17] LABS: Potassium 4.2 mmol/L (3.5-5.1)
[2018-11-25] MEDS: ARFORMOTEROL TARTRATE 15 MCG/2 ML VIAL.NEB NEB SCH ×2 (07:35→19:50)
[2018-11-25] MEDS: FAMOTIDINE 20 MG TAB PO SCH (08:36)
[2018-11-25] MEDS: acetaZOLAMIDE 250 MG TAB PO SCH (08:36)
[2018-11-25] MEDS: FUROSEMIDE 40 MG/4 ML VIAL IV SCH ×2 (08:37→16:39)
[2018-11-25] MEDS: predniSONE 10 MG TAB PO SCH ×2 (08:37→20:30)
[2018-11-25] MEDS: CARVEDILOL 6.25 MG TAB PO SCH ×2 (08:37→20:30)
[2018-11-25] MEDS: ENSURE ENLIVE 237 ML CAN PO SCH ×2 (08:38→20:31)
--- NOTE | 2018-11-25 13:45 | P.PN ---
Subjective Date of Service: 11/25/18 Primary Care Provider: Dr. Nino(I am covering for him); Pulm-Dr. Tellez; Card-Dr. Norton Chief Complaint: Shortness of breath, edema lower extremities Patient seen and examined at bedside with RN. Chart reviewed. Patient at this time not easily arousable. Sternal rub did wake up patient. However not able to communicate appropriately. This morning CO2 is elevated. Has been refusing BiPAP or CPAP at this time. Nasal cannula in place. Overnight did well overall per nursing staff. Review of Systems 10-point ROS is otherwise unremarkable Physical Examination - Vital Signs Temperature: 97.7 F Blood Pressure: 125/69 Pulse: 95 Respirations: 20 Pulse Ox (%): 0 - Physical Exam General: Mild distress, Other (Lethargic) HEENT: Atraumatic Neck: Supple, JVD distended Respiratory: Normal air movement, Crackles/rales, Expiratory wheezes, Inspiratory wheezes Cardiovascular: Regular rate/rhythm, Normal S1 S2 Gastrointestinal: Normal bowel sounds, No tenderness Musculoskeletal: No tenderness Integumentary: No rashes Neurological: Normal speech, Normal tone, Normal affect Lymphatics: No axilla or inguinal lymphadenopathy - Studies Medications List Reviewed: Yes Assessment And Plan - Plan Plan: Acute on chronic respiratory failure with hypercapnia and hypoxia: Most likely secondary to COPD exacerbation -This morning patient continues to be lethargic. -has been refusing BiPAP or CPAP overnight -restarted on BiPAP at this time. -patient does have home BiPAP at this time. -pulmonology consulted. Appreciated recommendations at this time -added Diamox for his congestive heart failure -continue with Lasix along with BiPAP at this time Acute on chronic CHF exacerbation -on IV Lasix at this time -started on Diamox by pulmonology at this time -cardiology has been consulted. Appreciated recommendations at this time Atrial fibrillation on chronic anti coagulation therapy: -Continue with his medication including carvedilol and Xarelto. Hypertension: -Continue with medication. Will monitor and adjust appropriately. Hypothyroidism: -Continue with his medication. Hyperlipidemia: -Continue with medication. Disposition: Pending clinical improvement at this time. Will continue with BiPAP at this time. Patient willing to go to a skilled facility. Social service has been consulted. Advanced directives addressed here in the hospital. Patient is not DNR. Possibility of hospice discussed with the patient. Patient qualifies for hospice at as the patient has advanced CHF and COPD. Patient also agreeable to this if his condition declines. Will follow up with the patient in 24-48 hr. Discharge Plan: Home Plan to discharge in: Greater than 2 days - Code Status/Comfort Care Code Status Assessed: Yes Critical Care: No
[2018-11-25] MEDS: RIVAROXABAN 15 MG TABLET PO SCH (16:40)
--- NOTE | 2018-11-25 18:00 | PN ---
Mr. Thomas seems a little bit less alert today. Overall Mr. Thomas's prognosis is very poor. His oxygen ation seems to be above 90% most of the time, so I think we have diuresed him enough. We need to zoran e sure we do not do anything that promotes hypercapnia and perhaps he could be discharged home fairly soon. LESLEY/DERRICK Voice ID: [id number] Report ID: [id number]
[2018-11-25] MEDS: IPRATROPIUM BROM 0.5MG/2.5ML NEB PRN (18:20)
[2018-11-25] MEDS: ALBUTEROL 2.5 MG/3 ML NEB SOL NEB PRN (18:20)
[2018-11-25] MEDS: ATORVASTATIN 20 MG TAB PO SCH (20:30)
[2018-11-26] MEDS: IPRATROPIUM BROM 0.5MG/2.5ML NEB PRN (01:20)
[2018-11-26] MEDS: ALBUTEROL 2.5 MG/3 ML NEB SOL NEB PRN (01:20)
[2018-11-26 06:05] LABS: Absolute Lymphocytes (CBC) 0.6 K/uL (0.7-4.9); Absolute Monocytes 0.3 K/uL (0.1-1.3); Absolute Neutrophil 4.8 K/uL (1.8-8.0); Basophils % 0.5 % (0-1.3); Hematocrit 40.6 % (39.6-49.0); Lymphocytes % 10.1 % (15.3-44.8); MPV 8.3 fL (7.6-11.3); Monocytes % 5.1 % (3.3-12.3); RBC Red Blood Cell Count 4.64 M/uL (4.33-5.43)
[2018-11-26] MEDS: LEVOTHYROXINE SOD 0.1 MG TAB PO SCH (06:24)
[2018-11-26 06:35] LABS: BUN Blood Urea Nitrogen 48 mg/dL (7-18); Glucose Level 139 mg/dL (74-106); Potassium 3.8 mmol/L (3.5-5.1); Sodium Level 139 mmol/L (136-145)
[2018-11-26 06:37] LABS: Bicarbonate > 45 mmol/L (21-32)
--- NOTE | 2018-11-26 08:21 | P.CNS ---
Date of Consult: 11/23/18 Primary Care Provider: Dr. Nino(I am covering for him); Pulm-Dr. Tellez; Card-Dr. Norton Chief Complaint: Shortness of breath, edema lower extremities History of Present Illness: Patient is 78 years of age with a history of COPD and diastolic dysfunction was just recently discharged on BiPAP came back again to the hospital complaining of worsening dyspnea compliant with his medication and BiPAP was also taking his diuretics also complain of lower extremity edema was found to have worsening of his bilateral pleural effusion was admitted in placed on BiPAP and diuretics were increased denies any fever chills Allergies No Known Drug Allergies Allergy (Verified 05/31/18 16:51) Unknown Home Medications: Budesonide/Formoterol Fumarate [Symbicort 160-4.5 Mcg Inhaler] 1 puff IH BID 10/01 Bumetanide 2 mg PO BID 11/23/18 Carvedilol [Coreg] 6.25 mg PO BID 11/23/18 Docusate Sodium 100 mg PO BID 11/23/18 Ipratropium Mdi [Atrovent Hf] 200 puff IH TID PRN 11/23/18 Levothyroxine [Synthroid] 100 mcg PO [id number] 11/23/18 Lovastatin [Altoprev] 40 mg PO DAILY AT SUPPER 11/23/18 Megestrol Acetate 400 mg PO BID 11/23/18 Rivaroxaban [Xarelto*] 15 mg PO DAILY 11/23/18 Umeclidinium [place] [Incruse Ellipta] 62.5 mcg IH DAILY 11/23/18 - Past Medical/Surgical History Diabetic: No -: HTN -: Hyperlipidemia -: Hypothyroidism -: CAD, [place] x2 () -: COPD -: Diastolic CHF -: History of right kidney cancer status post nephrectomy -: Atrial fibrillation, chronic anti coagulation -: afib -: Right Kidney Cancer- Jul 2016 completed Chemotherapy -: Kana Cataract surgery -: Right Kidney removal on AUG 2016 Psychosocial/ Personal History: Patient - Family History Father Medical History: Hypertension, Stroke Notes: aneursym Mother Notes: alzhemiers Brother Medical History: Heart disease, Hypertension Notes: chf Sister Medical History: Heart disease, Hypertension, Cancer Notes: fibromyalgia, breast cancer - Social History Smoking Status: Unknown if ever smoked Alcohol use: No CD- Drugs: No Caffeine use: Yes Place of Residence: Home Review of Systems General: Weakness Respiratory: Cough, Shortness of Breath Cardiovascular: Edema Physical Examination Temp Pulse Resp BP Pulse Ox 97.7 F 102 H 36 H 129/60 8 L 11/26/18 00:00 11/26/18 00:00 11/25/18 20:00 11/26/18 00:00 11/26/18 04:00 General: Alert, In no apparent distress, Oriented x3 HEENT: Atraumatic Neck: Supple Respiratory: Crackles/rales (Bilateral crackles) Cardiovascular: Normal pulses, Normal S1 S2, Edema (2+ edema) - Problems (1) CHF (congestive heart failure) Onset Date: 05/21/18 Current Visit: No Status: Chronic Plan: Patient is 78 years of age was recently discharged admitted yet again with worsening dyspnea he has bilateral pleural effusions patient is hypoxic hypercapnic chest x-ray shows bilateral pleural effusions bicarbonate is elevated patient is anti coagulated patient is on Diamox Lasix no evidence of sepsis white count is normal with BiPAP overall prognosis is very poor kidney function is stable Qualifiers: Heart failure type: unspecified Heart failure chronicity: chronic Qualified Code(s): I50.9 - Heart failure, unspecified
[2018-11-26] MEDS: predniSONE 10 MG TAB PO SCH ×2 (08:37→20:57)
[2018-11-26] MEDS: acetaZOLAMIDE 250 MG TAB PO SCH (08:37)
[2018-11-26] MEDS: CARVEDILOL 6.25 MG TAB PO SCH ×2 (08:37→20:57)
[2018-11-26] MEDS: FUROSEMIDE 40 MG/4 ML VIAL IV SCH ×2 (08:37→16:20)
[2018-11-26] MEDS: FAMOTIDINE 20 MG TAB PO SCH (08:37)
[2018-11-26] MEDS: ENSURE ENLIVE 237 ML CAN PO SCH ×2 (08:39→20:58)
[2018-11-26] MEDS: ARFORMOTEROL TARTRATE 15 MCG/2 ML VIAL.NEB NEB SCH ×2 (08:45→20:19)
[2018-11-26] MEDS ORDERED: POTASSIUM CL SA 10 MEQ TAB PO ONE (09:00)
--- NOTE | 2018-11-26 10:21 | RAD REPORT ---
EXAM DESCRIPTION: Jatinder Single View11/26/2018 10:14 am CLINICAL HISTORY: Shortness of breath COMPARISON: November 24, 2018 FINDINGS: Bilateral pulmonary opacities, small bilateral pleural effusions and cardiomegaly are unch anged. Central venous catheter remains place IMPRESSION: No significant change since prior examination
[2018-11-26] MEDS: RIVAROXABAN 15 MG TABLET PO SCH (16:19)
[2018-11-26] MEDS: ATORVASTATIN 20 MG TAB PO SCH (20:57)
[2018-11-27] MEDS: LEVOTHYROXINE SOD 0.1 MG TAB PO SCH (05:35)
[2018-11-27 05:57] LABS: Arterial Blood Carboxyhemoglob 1.5 % (0-1.5); Blood Gas Oxyhemoglobin 70.9 % (94-97); Blood O2 Saturation 72.3 % (92-98.5)
[2018-11-27 06:41] LABS: Absolute Lymphocytes (CBC) 0.6 K/uL (0.7-4.9); Absolute Monocytes 0.4 K/uL (0.1-1.3); Absolute Neutrophil 4.9 K/uL (1.8-8.0); Basophils % 1.1 % (0-1.3); Hematocrit 43.8 % (39.6-49.0); Lymphocytes % 10.5 % (15.3-44.8); Monocytes % 6.5 % (3.3-12.3); RBC Red Blood Cell Count 5.03 M/uL (4.33-5.43)
[2018-11-27 07:06] LABS: Magnesium 2.7 mg/dL (1.8-2.4); Potassium 4.1 mmol/L (3.5-5.1)
[2018-11-27] MEDS: ARFORMOTEROL TARTRATE 15 MCG/2 ML VIAL.NEB NEB SCH ×2 (07:42→20:12)
--- NOTE | 2018-11-27 08:12 | P.PN ---
Subjective Date of Service: 11/27/18 Primary Care Provider: Dr. Nino(I am covering for him); Pulm-Dr. Tellez; Card-Dr. Norton Chief Complaint: Shortness of breath, edema lower extremities Subjective: No new changes (Patient's condition is stable still requiring BiPAP alert responsive cooperative) Review of Systems General: Weakness Respiratory: Shortness of Breath Physical Examination - Vital Signs Temperature: 97.4 F Blood Pressure: 139/65 Pulse: 56 Respirations: 16 Pulse Ox (%): 93 - Physical Exam General: Alert, Cooperative Respiratory: Clear to auscultation bilaterally, Diminished - Studies Medications List Reviewed: Yes Assessment & Plan - Problems (Diagnosis) (1) CHF (congestive heart failure) Onset Date: 05/21/18 Current Visit: No Status: Chronic Plan: Patient's condition is stable chest x-ray still shows some bilateral pleural effusions change to p.o. Lasix continue with Diamox trial off BiPAP labs reviewed kidney function stable bicarbonate is now or lower than yesterday Qualifiers: Heart failure type: unspecified Heart failure chronicity: chronic Qualified Code(s): I50.9 - Heart failure, unspecified Physician Review Additional Text: Impression: Acute on chronic respiratory failure with hypercapnia and hypoxia secondary to acute on chronic diastolic CHF with COPD exacerbation also with likely chronic but Atrial fibrillation on chronic anti coagulation therapy Hypertension Hypothyroidism Hyperlipidemia Plan: Acute on chronic respiratory failure with hypercapnia and hypoxia secondary to acute on chronic diastolic CHF with COPD exacerbation also with likely chronic pleural effusions: Patient slightly improved. Continue to maintain sats above 90%. Continue wean off BiPAP. Patient with home BiPAP. Continue with fluid restriction and IV Lasix. Continue CHF and COPD treatment. Cardiology consulted. Pulmonology also consulted to further evaluate. Patient willing to go to a skilled facility. Will consult forensic social worker to help with this. Advanced directives address in detail yesterday. Patient is DNR. Other consideration would be hospice as the patient has advanced CHF and COPD. Patient also agreeable to this if his condition declines. I will turn the service over to Dr. Duggan tomorrow. I will go over the plan of care with her. Atrial fibrillation on chronic anti coagulation therapy: Continue with his medication including carvedilol and Xarelto. Hypertension: Continue with medication. Will monitor and adjust appropriately. Hypothyroidism: Continue with his medication. Hyperlipidemia: Continue with medication.
[2018-11-27] MEDS: acetaZOLAMIDE 250 MG TAB PO SCH (08:21)
[2018-11-27] MEDS: FLUTICASONE 50MCG NASAL SPRAY NAS SCH (08:21)
[2018-11-27] MEDS: CARVEDILOL 6.25 MG TAB PO SCH ×2 (08:22→21:37)
[2018-11-27] MEDS: FAMOTIDINE 20 MG TAB PO SCH (08:22)
[2018-11-27] MEDS: predniSONE 10 MG TAB PO SCH ×2 (08:22→21:37)
[2018-11-27] MEDS: FUROSEMIDE 40 MG TABLET PO SCH (08:26)
[2018-11-27] MEDS: ENSURE ENLIVE 237 ML CAN PO SCH ×2 (08:28→21:00)
--- NOTE | 2018-11-27 08:38 | RAD REPORT ---
EXAM DESCRIPTION: RAD - Chest Single View - 11/27/2018 6:37 am CLINICAL HISTORY: Follow for pleural effusion Chest pain. COMPARISON: Chest Single View dated 11/26/2018; Chest Single View dated 11/24/2018; Chest Single View dated 11/23/2018; Chest Single View dated 11/03/2018 FINDINGS: Portable technique limits examination quality. No significant change is seen in the bilateral pulmonary opacities with bilateral pleural effusions s alberto comparative study. The heart is significantly enlarged in size. Right-sided port catheter tip in the SVC. IMPRESSION: Stable chest since comparative study.
--- NOTE | 2018-11-27 12:59 | PN ---
The patient is status quo. He has significant pulmonary problems. Discussion of disposition ranging from hospice to SNF units have been discussed with him and his . The blood gases will be repeat ed to see if any progress has been made, although his oxygen requirements seem somewhat better for th e past 24 hours. He is also somewhat orientated tonight as compared to last night and his blood chem istries are stable. HR/MODL Voice ID: [id number] Report ID: [id number]
--- NOTE | 2018-11-27 13:23 | PN ---
Date of Progress Note: 11/27/2018 This is a progress note for 11/27/2018. Mr. Thomas was admitted by Dr. Nino with congestive heart f ailure on 11/23/2018. He has been followed by Dr. Norton all along. He has hypertension, diastolic congestive heart failure, coronary artery disease. He has a history of atrial fibrillation, on Xarel to, COPD exacerbation. Remains slightly confused, but has been diuresing well. I would suggest cont inuing with the medical therapy. Hopefully discharge in the next day or 2. No further cardiac edilia p is planned at this point. CLIF/MODL Voice ID: [id number] Report ID: [id number]
[2018-11-27] MEDS: RIVAROXABAN 15 MG TABLET PO SCH (16:53)
[2018-11-27] MEDS: ALBUTEROL 2.5 MG/3 ML NEB SOL NEB PRN ×2 (20:10→23:25)
[2018-11-27] MEDS: IPRATROPIUM BROM 0.5MG/2.5ML NEB PRN ×2 (20:12→23:25)
[2018-11-27] MEDS: ATORVASTATIN 20 MG TAB PO SCH (21:37)
[2018-11-28] MEDS: ALBUTEROL 2.5 MG/3 ML NEB SOL NEB PRN (04:56)
[2018-11-28] MEDS: IPRATROPIUM BROM 0.5MG/2.5ML NEB PRN (04:56)
[2018-11-28] MEDS: LEVOTHYROXINE SOD 0.1 MG TAB PO SCH (05:29)
[2018-11-28 07:17] LABS: BUN Blood Urea Nitrogen 47 mg/dL (7-18); Glucose Level 124 mg/dL (74-106); Magnesium 2.8 mg/dL (1.8-2.4); Sodium Level 140 mmol/L (136-145)
[2018-11-28 07:21] LABS: Bicarbonate > 45 mmol/L (21-32)
[2018-11-28] MEDS: ARFORMOTEROL TARTRATE 15 MCG/2 ML VIAL.NEB NEB SCH (07:40)
--- NOTE | 2018-11-28 09:07 | RAD REPORT ---
EXAM DESCRIPTION: Jatinder Single View11/28/2018 6:42 am CLINICAL HISTORY: Shortness of breath COMPARISON: November 27, 2018 FINDINGS: No significant change has occurred in the bilateral pulmonary opacities, bilateral pleura l effusions and cardiomegaly
[2018-11-28] MEDS: CARVEDILOL 6.25 MG TAB PO SCH (10:08)
[2018-11-28] MEDS: predniSONE 10 MG TAB PO SCH (10:08)
[2018-11-28] MEDS: ENSURE ENLIVE 237 ML CAN PO SCH (10:09)
[2018-11-28] MEDS: FAMOTIDINE 20 MG TAB PO SCH (10:09)
[2018-11-28] MEDS: acetaZOLAMIDE 250 MG TAB PO SCH (10:09)
[2018-11-28] MEDS: FLUTICASONE 50MCG NASAL SPRAY NAS SCH (10:09)
[2018-11-28] MEDS: FUROSEMIDE 40 MG TABLET PO SCH (10:12)
[2018-11-28 17:26] VITALS: BP 113/59; TEMP 98.3
[2018-11-28] MEDS: RIVAROXABAN 15 MG TABLET PO SCH (17:50)
[2018-11-28 18:35] VITALS: O2SAT 92; BMI 20.5
--- NOTE | 2018-11-30 09:44 | PN ---
Date of Progress Note: 11/27/2018 The patient seems status quo. He used BiPAP last night. We will try the nasal cannula today. He co ntinues to diuresis. Mental status has improved. He possibly could be discharged in the a.m. to use a combination of nasal cannula, BiPAP, and diuretics. At this time, rather than the Bumex, we are g oing with the 80 Lasix as he was getting this IV with good results. HR/MODL Voice ID: [id number] Report ID: [id number]
== END 2018-11-28 19:13 | disposition hospice, home (50) | DRG 291 ==
LOC: ER 10:11 → ERHOLD 12:51 → 2ND 15:12
PROVIDERS: ADMIT Family Medicine; ATTEND Family Medicine
PROC: 5A09457 Assistance with Respiratory Ventilation, 24-96 Consecutive Hours, Continuous Positive Airway Pressure (ICD-10-PCS; principal; 2018-11-23)
DX: I11.0 Hypertensive heart disease with heart failure (principal); J96.21 Acute and chronic respiratory failure with hypoxia; J96.22 Acute and chronic respiratory failure with hypercapnia; J44.1 Chronic obstructive pulmonary disease with (acute) exacerbation; J90 Pleural effusion, not elsewhere classified; C78.00 Secondary malignant neoplasm of unspecified lung; I50.33 Acute on chronic diastolic (congestive) heart failure; I48.91 Unspecified atrial fibrillation; Z79.01 Long term (current) use of anticoagulants; E03.9 Hypothyroidism, unspecified; E78.5 Hyperlipidemia, unspecified; Z66 Do not resuscitate; I25.10 Atherosclerotic heart disease of native coronary artery without angina pectoris; Z95.5 Presence of coronary angioplasty implant and graft; Z87.891 Personal history of nicotine dependence; I25.2 Old myocardial infarction; Z85.53 Personal history of malignant neoplasm of renal pelvis; Z90.5 Acquired absence of kidney
CPT/HCPCS: 36415; 71045; 80048; 80061; 80076; 81003; 82550; 82553; 82805; 83605; 83735; 83880; 84145; 84484; 85025; 85610; 87040; 87804; 93005; 94640; 94660; 94760; 96365; 96366; 96367; 96375; 97110; 97162; 97530; 99285; J1940; J2930; J3475; J7512; J7605